=== PATIENT | female | born 1970 | race Asian ===

== ENCOUNTER 2024-04-16 08:23 | Inpatient (IN) | payer BC, SELFPAY ==
[2024-04-15] VITALS (13 sets, daily range): BP systolic 88–127; BP diastolic 52–70; BMI 15.8; BMI 16.4
--- NOTE | 2024-04-15 02:31 | ED.GENMED ---
History of Present Illness
<LADAN Patel - Last Filed: 04/15/24 03:02>
General
Chief Complaint: Catheter/Tube Problem
Source: patient
Exam Limitations: other (Patient in distress, difficult to get a full history)
Time Seen by Provider: 04/15/24 02:11
Travel History
Have you had any contact with someone who has COVID-19?: No
Do you have any symptoms of coronavirus? Fever > 100 degrees, chills, cough, shortness of breath, sore throat, loss of taste or smell, muscle aches, or headache?: No
History of Present Illness
History of Present Illness:
This is a 53 YO F with a PMH of ALS presenting here tonight with complaints of constant pain by her PEG tube site, which was placed two days ago (04/13/24). She was taken here by EMS. Pt reports the pain started on Saturday around 1:30 p.m. She took
Tylenol and Advil three hours ago without relief. She denies any radiation of pain. She rates the severity of her pain an 8/10. She reports SOB and nausea x 1 day. She denies chest pain and vomiting.
Past History
<LADAN Patel - Last Filed: 04/15/24 03:02>
Past History
ED Past Medical History: Other (Interstitial cystitis, ALS)
ED Past Surgical History: and Orthopedic
Social History
Tobacco: Non-smoker
Alcohol: None
Drug: None
Living: with family
Phy Exam
<LADAN Patel - Last Filed: 04/15/24 03:02>
General Physical Exam
General Presentation: moderate distress and severe distress
General age: appears stated age
General Skin: warm and dry
General Mental: alert
General Chronic Disability: other (PEG Tube placed two days ago)
Cardiovascular Exam
Cardiovascular Exam: regular rate/rhythm
Gastrointestinal Exam
Gastrointestinal Exam: normal bowel sounds and other (Tender, rigid abdomen)
Palpation: left upper quadrant: Moderate tenderness, left lower quadrant: Moderate tenderness and right lower quadrant: Moderate tenderness
Auscultation of Abdomen: normal
Course
<Lory Miranda, [facility] - Last Filed: 04/15/24 03:02>
Orders/Labs/Results
Orders:
Orders
04/15/24 02:25
IV Insert/Care/Rem.- Treatment PRN
04/15/24 02:27
Complete Blood Count/With Diff Urgent
Comprehensive Metabolic Panel Urgent
Lipase Urgent
04/15/24 02:57
CT Abd/pelvis W Iv Cont Urgent
Comment:
Reason For Exam: n/v abd pain s/p jtube
04/15/24 03:09
Lactic Acid Q4H
Comment: CANCEL 2nd LACTIC ACID IF 1st LACTIC ACID IS LESS THAN 2
04/15/24 03:34
HYDROmorphone [Dilaudid] 0.5 mg .ROUTE .STK-MED ONE
04/15/24 03:38
HYDROmorphone [Dilaudid] 0.5 mg IV NOW STA
04/15/24 03:50
0.9% Sodium Chloride 1000 ml [Nss] 1,000 ml IV BOLUS
Metoclopramide [Reglan] 10 mg IV NOW STA
04/15/24 07:15
Lactic Acid Q4H
Comment: CANCEL 2nd LACTIC ACID IF 1st LACTIC ACID IS LESS THAN 2
Abnormal Lab Results
04/15/24
02:27
WBC 14.7 H 10^3/uL
(4.8-10.8)
RBC 3.96 L 10^6/uL
(4.20-5.40)
Hct 33.8 L %
(37.0-47.0)
Abs Immat Gran (auto) 0.1 H 10^3/uL
(0-0.05)
Absolute Neuts (auto) 13.5 H 10^3/uL
(1.4-6.5)
Absolute Lymphs (auto) 0.6 L 10^3/uL
(1.2-3.4)
Neutrophils % 92.3 H %
(42.2-75.2)
Lymphocytes % 4.4 L %
(20.5-51.1)
Potassium 3.2 L mmol/L
(3.5-5.1)
BUN 18 H mg/dl
(7-17)
Glucose 164 H mg/dl
(70-99)
04/15/24 02:27
04/15/24 02:27
Vital Signs
Initial and Last Documented VS:
Initial Vital Signs
Temp Pulse Resp BP Pulse Ox
98.2 F 82 18 127/67 95
04/15/24 02:12 04/15/24 02:12 04/15/24 02:12 04/15/24 02:12 04/15/24 02:12
Last Documented Vital Signs
Temp Pulse Resp BP Pulse Ox
98.2 F 82 18 92/61 94
04/15/24 02:12 04/15/24 02:12 04/15/24 02:12 04/15/24 04:00 04/15/24 04:00
<Cali Abebe, DO - Last Filed: 04/15/24 04:39>
Orders/Labs/Results
Orders:
Orders
04/15/24 02:25
IV Insert/Care/Rem.- Treatment PRN
04/15/24 02:27
Complete Blood Count/With Diff Urgent
Comprehensive Metabolic Panel Urgent
Lipase Urgent
04/15/24 02:57
CT Abd/pelvis W Iv Cont Urgent
Comment:
Reason For Exam: n/v abd pain s/p jtube
04/15/24 03:09
Lactic Acid Q4H
Comment: CANCEL 2nd LACTIC ACID IF 1st LACTIC ACID IS LESS THAN 2
04/15/24 03:34
HYDROmorphone [Dilaudid] 0.5 mg .ROUTE .STK-MED ONE
04/15/24 03:38
HYDROmorphone [Dilaudid] 0.5 mg IV NOW STA
04/15/24 03:50
0.9% Sodium Chloride 1000 ml [Nss] 1,000 ml IV BOLUS
Metoclopramide [Reglan] 10 mg IV NOW STA
04/15/24 07:15
Lactic Acid Q4H
Comment: CANCEL 2nd LACTIC ACID IF 1st LACTIC ACID IS LESS THAN 2
Abnormal Lab Results
04/15/24
02:27
WBC 14.7 H 10^3/uL
(4.8-10.8)
RBC 3.96 L 10^6/uL
(4.20-5.40)
Hct 33.8 L %
(37.0-47.0)
Abs Immat Gran (auto) 0.1 H 10^3/uL
(0-0.05)
Absolute Neuts (auto) 13.5 H 10^3/uL
(1.4-6.5)
Absolute Lymphs (auto) 0.6 L 10^3/uL
(1.2-3.4)
Neutrophils % 92.3 H %
(42.2-75.2)
Lymphocytes % 4.4 L %
(20.5-51.1)
Potassium 3.2 L mmol/L
(3.5-5.1)
BUN 18 H mg/dl
(7-17)
Glucose 164 H mg/dl
(70-99)
04/15/24 02:27
05/22/24 02:27
Vital Signs
Initial and Last Documented VS:
Initial Vital Signs
Temp Pulse Resp BP Pulse Ox
98.2 F 82 18 127/67 95
04/15/24 02:12 04/15/24 02:12 04/15/24 02:12 04/15/24 02:12 04/15/24 02:12
Last Documented Vital Signs
Temp Pulse Resp BP Pulse Ox
98.2 F 82 18 92/61 94
04/15/24 02:12 04/15/24 02:12 04/15/24 02:12 04/15/24 04:00 04/15/24 04:00
<LADAN Patel - Last Filed: 04/15/24 03:02>
MDM/Problems Addressed
Differential Diagnosis Includes:
Displacement of PEG Tube, SBO, LBO, Volvulus
MDM/Problems Addressed:
8/10 abdominal pain at site of PEG tube
Chronic conditions affecting care: Other (ALS)
<LADAN Patel - Last Filed: 04/15/24 03:02>
*Critical Care Note
Total Time (30-74mins, 75-104mins- exclusive of procedures): Not Applicable
ED Attending Note
<LADAN Patel - Last Filed: 04/15/24 03:02>
-
Portions of this chart may have been created with voice recognition software.� Occasional wrong word or��sound alike� substitutions may have occurred due to the inherent limitations of voice recognition software.
<Cali Abebe DO - Last Filed: 04/15/24 04:39>
ED Attending Note
Patient seen and examined by attending physician: Yes
I performed the substantive portion of visit, reviewed & personally made and approve the management plan that is documented in note by myself or RICHARD.: Yes
ED Attending Note:
This a pleasant 53-year-old female that presents with abdominal pain. She is 2 days status post PEG tube insertion. It was done at [facility]. She states that she developed pain shortly after the procedure. She reports that the pain is
contained in her abdomen. Denies chest pain, but does report some mild shortness of breath especially when the pain is at its worst. She did try Tylenol and Motrin without relief. Patient was seen in conjunction with the PA student. I have
reviewed and agree with the history and treatment plan presented. On my independent physical exam, patient is awake, alert, and oriented x3. She is in moderate acute distress. Heart is regular rate and rhythm. Lungs are clear to auscultation
bilaterally. Abdomen is firm. There is PEG tube in the abdomen. Dressings are clean and dry. She does have tenderness to palpation throughout the abdomen but especially around the PEG tube site. Good bowel sounds are heard. She moves all 4
extremities. Skin is warm and dry.
Discharge Plan
Departure
Patient Disposition: Admit
Date of Disposition: 04/15/24
Time of Disposition: 04:38
Admit to: Med/Surg
Presentation/result/management discussed w/ accepting MD/DO: Hospitalist
Discharge Problem:
als exacerbation, Weakness, Abdominal pain
Prescriptions:
No Action
prednisolone 5 MG tablet
4 mg PO DAILY
Patient Comments:
last dose tomorrow
cephalexin [Keflex] 500 MG capsule
500 mg PO Q6 Qty: 30 1RF
amoxicillin-pot clavulanate 1 TABLET tablet
1 tab PO BID Qty: 14 0RF
oxycodone 5 MG tablet
5 mg PO Q4HPRN PRN (Reason: pain) Qty: 20 0RF
amoxicillin-pot clavulanate 875-125 mg tablet
1 tab PO BID Qty: 14 0RF
Referrals:
PRIVATE,PHYSICIAN [Family Provider] -
Interventions
Interventions:
*Risk Screen - Suicide Last Done: 04/15/24 02:19
*General Assessment Last Done: 04/15/24 02:12
*Neglect/Abuse Screening Last Done: 04/15/24 02:12
ED- Fall Risk Assessment Last Done: 04/15/24 02:12
*ED COVID-19 Vaccine History Last Done: 04/15/24 02:12
WG-Mavqvm-Lkhhsvqtop Assessment Last Done: 04/15/24 02:41
Discharge Date and Time
Print Language: ALBANIAN
[2024-04-15 02:37] LABS: % Basophils 0.3 % (0-2); % Immature Granulocytes 0.3 % (0-0.5); % Lymphocytes 4.4 % (20.5-51.1); % Monocytes 2.7 % (1.7-9.3); % Neutrophils 92.3 % (42.2-75.2); Absolute Basophils 0.1 10^3/uL (0-0.2); Absolute Immature Granulocytes 0.1 10^3/uL (0-0.05); Absolute Lymphocytes 0.6 10^3/uL (1.2-3.4); Absolute Monocytes 0.4 10^3/uL (0.1-0.6); Absolute Neutrophils 13.5 10^3/uL (1.4-6.5); Hematocrit 33.8 % (37.0-47.0); Hemoglobin 12.2 g/dL (12.0-16.0); Mean Corp Hgb Conc. 36.1 g/dL (33.0-37.0); Mean Corpuscular Hgb 30.8 pg (27.0-31.0); Mean Corpuscular Volume 85.4 fL (81.0-99.0); Mean Platelet Volume 10.2 fL (7.4-10.4); Nucleated Red Blood Cells % 0 %; Platelet Count 263 10^3/uL (130-400); Red Blood Cell Count 3.96 10^6/uL (4.20-5.40); White Blood Cell Count 14.7 10^3/uL (4.8-10.8)
[2024-04-15 02:51] LABS: ALT (SGPT) < 10 U/L (0-35); AST (SGOT) 19 U/L (14-36); Albumin 4.1 g/dl (3.5-5.0); Alkaline Phosphatase 58 U/L (38-126); Blood Urea Nitrogen 18 mg/dl (7-17); Calcium 9.6 mg/dl (8.4-10.2); Carbon Dioxide 23 mmol/L (22-30); Chloride 104 mmol/L (98-107); Estimated Creatinine Clearance 72 ml/min; Glucose 164 mg/dl (70-99); Potassium 3.2 mmol/L (3.5-5.1); Sodium 141 mmol/L (135-145); Total Protein 7.2 g/dl (6.3-8.2); eGFR > 60.00
[2024-04-15 03:15] LABS: Lipase 53 U/L (23-300)
[2024-04-15] MEDS: DILAUDID 0.5 MG IV (03:38)
[2024-04-15 03:44] LABS: Lactic Acid 1.7 mmol/L (0.7-2.0)
[2024-04-15] MEDS: NSS 1000 IV ×3 (03:59→20:00)
[2024-04-15] MEDS: REGLAN 10 MG IV (04:00)
--- NOTE | 2024-04-15 04:39 | HPS.HSE ---
Family Physician
-
Family Physician: PHYSICIAN PRIVATE
Chief Complaint
-
Abdominal pain at the PEG site
History of Present Illness
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 PEG tube was placed by Dr. Sky Rivera, bariatric surgeon/GI surgeon at [facility].
She took Tylenol and Advil without relief. She is a poor historian likely due to current pain and underlying ALS.
Denies to any other symptoms.
At baseline, she uses a wheelchair for ambulation
Medical History
Past Medical History
Past Medical History: Reports Other
Additional Past Medical History:
ALS
chronic overactive bladder
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
Past Surgical History: Reports Other
Additional Past Surgical History:
Back surgery x 2
PICC placement 04/13/2024 at [facility]
Social History
Tobacco: Non-smoker
Alcohol: None
Living: With Family
Employment: Disabled
Family History
Family History: Not pertinent
Allergies / Home Medications
Allergies reflects when Allergies were last updated in [employer].
Home Medications with original date entered in [employer]
Allergy/Medication List:
Medications on admission are unable to be verified or confirmed at this time.
Review of Systems
-
Abdomen/GI: Reports See HPI and Abdominal Pain
Physical Exam
Vital Signs
Vital Signs
Temp Pulse Resp BP Pulse Ox
36.8 C 82 18 92/61 94
04/15/24 02:12 04/15/24 02:12 04/15/24 02:12 04/15/24 04:00 04/15/24 04:00
Physical Exam
General: Well Developed, Slurred Speech (Likely chronic due to underlying ALS), Appears Chronically Ill and Cachectic
HEENT: NormoCephalic and Moist mucous membranes
Respiratory: Clear and Non Labored Respirations; No Accessory Resp Muscle Use
Cardiac: S1/S2 and Regular Rhythm; No Murmur or Rub
GI: Non Distended, Normal Bowel Sounds, Tender and Peg Tube; No Organomegaly
Rectal: Deferred by Provider
Musculoskeletal: No Clubbing, No Cyanosis and No Edema
Skin: No Rash
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
Psych: Calm and Intact Judgment/Insight (Somewhat)
Laboratory Results
-
04/15/24 02:27
04/15/24 02:
Laboratory Results
Lactic Acid 1.7 mmol/L (0.7-2.0) 04/15/24 03:09
Total Bilirubin 1.0 mg/dl (0.2-1.3) 04/15/24 02:27
AST 19 U/L (14-36) 04/15/24 02:27
ALT < 10 U/L (0-35) 04/15/24 02:
Alkaline Phosphatase 58 U/L (38-126) 04/15/24 02:27
Lipase 53 U/L (23-300) 04/15/24 02:27
Data Reviewed
-
Lab Data: Labs Reviewed by me
Impression/Plan
-
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 PEG tube was placed by Dr. Sky Rivera, bariatric surgeon/GI surgeon at [facility].
She took Tylenol and Advil without relief. She is a poor historian likely due to current pain and underlying ALS.
Denies to any other symptoms.
At baseline, she uses a wheelchair for ambulation
A/P:
# Abdominal Pain since Recent PEG Placement 04/13/2024
# ALS
# Clinical deconditioning/severe protein caloric malnutrition, BMI 15
CT abdomen pelvis prelim read unrevealing, follow formal report
will also order tube check
PEG tube not in use yet
Admit for pain control, start IV morphine for pain control
N.p.o. for now with IV fluid
Speech eval prior to starting diet. Family states that patient is on regular diet at home
Consider Neuro CS for ALS
# Leukocytosis suspect reactive
Check blood culture
# Hypokalemia
Replete IV
Check mag level
DVT prophylaxis: Lovenox SQ
Full code
[2024-04-15] MEDS: KCL 270 MEQ IV (05:57)
[2024-04-15] MEDS: MORPHINE SULFATE 2 MG IV ×2 (08:19→16:45)
--- NOTE | 2024-04-15 09:06 | W.PN.HOSP.TC ---
Addendum entered and electronically signed by Hugo Santos MD 04/15/24 15:44:
Rather than repeat ABG it should read tomorrow might need to repeat images*
Original Note:
Today's Communication/Plan
-
IV fluids. IV antibiotics. Pain control.
Assessment / Plan
Assessment / Plan
Physical Exam
General: Slurred Speech (Likely chronic due to underlying ALS), Acute on chronically Ill and Cachectic
HEENT: NormoCephalic and Dry mucous membranes
Respiratory: Clear and Non Labored Respirations; No Accessory Resp Muscle Use
Cardiac: S1/S2 and Regular Rhythm; No Murmur or Rub
GI: Tender-diffusely, Distended, Hypoactive Bowel Sounds, Peg Tube in place; No Organomegaly
Rectal: Deferred by Provider
Musculoskeletal: No Clubbing, No Cyanosis and No Edema
Skin: No Rash
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
Psych: Anxious
A/P:
# Abdominal Pain since Recent PEG Placement 04/13/2024--> concerns for superior mesenteric artery syndrome versus enteritis versus constipation versus ischemic bowel syndrome vs Stercoral colitis
Keep NPO.
IV fluids.
Start empiric IV antibiotics, Zosyn.
Reviewed CT scan of the abdomen and pelvis results. Some concerning findings on images such as SMA, moderate pneumoperitoneum, distention of stomach and duodenum, distention of the bowels, but also alternative explanations so we will follow
clinically very closely.
Reviewed tube check study. Gastrostomy tube in position.
Surgery consult--> discussed with our surgeon here who will see the patient, Dr. Wilson.
GI consult--> [facility] texted GI today and they will see the patient today.
Called transfer center at [facility] and discussed with outpatient surgeon-->Dr. Sky Rivera . Outpatient surgery does not feel this is a complication from procedure done on Saturday and he does not think that she needs to be transferred
the moment but he is open for us to call back if clinical status worsens or not improvement.
PEG tube not in use yet. Keep PEG to gravity for now.
Aggressive bowel regimen
Might need repeat ABGs tomorrow or sooner if clinical status changes.
Lactate 1.7
Will discontinue all narcotics.
Will use rather IV acetaminophen and IV Toradol as needed. Narcotics only if no other choice since it will worsen constipation at this point and will obscure clinical picture.
Discussed with son at bedside today.
Prognosis guarded and worse if she were to require surgical intervention.
# ALS
Follows up with outpatient neurologist at [facility] [facility].
Continue neurological checks
# Clinical deconditioning/severe protein caloric malnutrition, BMI 15
She is able to tolerate oral intake but PEG was placed to help with nutrition and in anticipation of progression of her underlying neurological disorder.
Speech therapy evaluated the patient today and cleared her for diet but medically not ready for diet yet. Not ready to use PEG either. Will reevaluate.
# Leukocytosis, infectious process reactive
Check blood culture
Empiric antibiotics
# Hypokalemia
Replete IV
Check mag level in am
DVT prophylaxis: Lovenox SQ
Full code
Total Critical Care Time 45 minutes. I was immediately available to the patient and staff. I personally examined, reviewed labs, diagnostic images/reports, interpretations, treatment plans, discussed patient care with other providers and family
or caregivers (if patient is unable to make decisions), entered orders as appropriate and documented the medical record.
Anticipated Discharge: > 48 hours
Subjective/Interval History
-
Date of Service: April 15, 2024
Patient with diffuse abdominal pain moderate to severe intensity. She has not passed any gases or has any bowel movement. She has not bowel movement for several days since Saturday evening prior to her procedure.
Objective Data
-
Labs:
Laboratory Results
04/15/24
02:27
WBC 14.7 H
Hgb 12.2
Hct 33.8 L
Plt Count 263
Sodium 141
Potassium 3.2 L
Chloride 104
Carbon Dioxide 23
BUN 18 H
Creatinine 0.6
Glucose 164 H
Calcium 9.6
Total Bilirubin 1.0
AST 19
ALT < 10
Alkaline Phosphatase 58
Vital Signs:
Vital Signs
Temp Pulse Resp BP Pulse Ox
98.2 F 82 18 90/64 95
04/15/24 02:12 04/15/24 02:12 04/15/24 02:12 04/15/24 06:00 04/15/24 06:00
--- NOTE | 2024-04-15 11:31 | PTOTSP ---
SPEECH THERAPY SWALLOW EVALUATION:
Patient exhibits clinical signs of oropharyngeal dysphagia, likely chronic related to ALS. Recommend a Videofluoroscopic Swallowing Study to further assess swallow physiology given patient has not had one previously per pt and family report. Given
that patient is unable to tolerate 90 degree upright positioning at this time due to abdominal pain, recommending holding on VSE until patient able to tolerate. Patient endorses history of 'choking' with liquids. WBC currently elevated. Patient is
at high risk for aspiration and related complications given ALS and related weakness/deconditioning. Discussed recommendation for VSE with patient/family, who appeared resistant to recommendations, with family reporting they did not want patient to
have any 'extra' procedures at this time. Educated patient/family on rationale for VSE to assess for swallow safety with oral diet and prevent aspiration related complications. Family continue to appear resistant to recommendations at this time.
RN reported PEG tube in place has not been cleared for use yet. Given patient's stable respiratory status at this time (breathing comfortably on room air), and chronicity of dysphagia, patient appears safe to continue cautious oral diet prior to
VSE. Recommend IDDSI Level 6 Soft and Bite Size diet and thin liquids; Medications whole in puree. Strict aspiration precautions includin:1 assist; Upright as able to tolerate positioning; Small single sips; Small bites; Slow rate of intake. D/C
oral diet if pt exhibits any signs concerning for aspiration or a decline in respiratory status. Discussed with pt/family/RN/Dr. Santos. Dr. Santos reported patient will be NPO today for medical reasons. Recommend initiate oral diet when cleared by
. Speech Therapy to follow, assess diet tolerance and modify as appropriate, monitor CXR and labs, determine readiness for VSE, provide continued pt/caregiver education regarding aspiration risks and precautions and VSE rationale, and provide
continued diagnostic swallow therapy as appropriate.
RECOMMEND:
1) Videofluoroscopic Swallowing Study when patient able to tolerate and agreeable
2) initiate cautious diet of IDDSI Level 6 Soft and Bite Size diet and thin liquids when medically cleared
3) Medications whole in puree
4) Strict aspiration precautions includin:1 assist; Upright as able to tolerate positioning; Small single sips; Small bites; Slow rate of intake. D/C oral diet if pt exhibits any signs concerning for aspiration or a decline in respiratory status
5) Speech Therapy to follow
--- NOTE | 2024-04-15 11:48 | CON.GI ---
Addendum entered and electronically signed by Chika Ku MD 04/15/24 16:40:
I saw and examined the patient.
The FINISHER MAP AND CHART or PA's note was reviewed and I agree with the note.
Comment: 53-year-old female with history of ALS, interstitial cystitis presenting with complaints of diffuse abdominal pain status post PEG tube placement 04/13. Procedure done at [facility] for dysphagia, gastroscopy with PEG tube
placement, patient reports abdominal pain after the procedure, had significant amount of bile that was noted in G-tube was put to gravity, was sent home and visiting nurse was sent, not much drainage from G-tube , G-tube clamped after. In the
emergency room, she had CT scan of the abdomen pelvis that showed moderate free air in the abdomen likely related to the PEG tube placement, also noted was dilated stomach and proximal duodenum, moderate free fluid and stool in the colon. Patient
reports history of constipation, has a bowel movement every couple of days with some incomplete evacuation.Has not been taking any laxatives. No blood in the stool or black stool and no history of upper endoscopy or colonoscopy prior to this.
-And moderate constipation abdominal pain status post-PEG tube placement, CT scan showing pneumoperitoneum likely related to procedure, dilated stomach and small bowel
Likely multifactorial cause for abdominal pain including postprocedure/constipation
Reports some burning urination prior to this visit but not today
Agree with putting G-tube to gravity to see if there is significant drainage of bile
Noted plan for surgery for small bowel follow-through using G-tube
Limit/avoid narcotics given constipation and dilated small bowel
Okay for Toradol
MiraLAX through the G-tube to help with constipation
Monitor electrolytes and replete
Leukocytosis,Blood cultures pending
Urine without any significant white cells
Will follow
Original Note:
Consultation
-
Date/Time Consultation Requested: 04/15/24 1115
Date/Time Consultation Performed: 04/15/24 1145
Requesting Provider: Hugo Santos MD
Performing Provider: KEILY Crockett, Chika Ku MD
Reason for Consultation: pain at peg site
Medical History
Chief Complaint / HPI
Chief Complaint: abdominal pain
History of Present Illness:
Pt is a 53yo presents with ALS with peg tube placement 04/13 with increased diffuse abdominal pain. On admission CT completed with large amount of free air related to peg placement, tube in position, dilated stomach and proximal duodenum with change
in caliber at midline suggest SMA syndrome, moderate free, distented and fluid filled SB loops c/w enteritis, moderate stool in colon. Tube check confirms GT in position. Moderate pneumoperitoneum severe air distention of duodenum, SB distention
and mild to moderate colonic distention.
In reviewing with patient and family hx constipation with stools every other day last stool several days ago. she admits to some nausea and vomiting small amount but did have tube to gravity bag initially at home and clamped by home nursing.
She otherwise admits to slow eating but denies any issue with diarrhea or rectal bleeding.
Past Medical History
Past Medical History: Other (ALS, chronic overactive bladder , recent peg placement, back pain, picc placement )
Social History
Tobacco: Former Smoker (years ago )
Alcohol: None
Drug: Marijuana (at nighttime)
Living: With Family
Employment: Disabled
Family History
Family History: Other (no family hx GI issues)
Allergies / Home Medications
Allergy/AdvReac Type Severity Reaction Status Date / Time
cat dander Allergy Itching Verified 04/15/24 02:12
�Medication �Instructions �Recorded
Atropine 1% 2 - 4 drp PO Q6HPRN PRN sercetions 04/15/24
alprazolam 0.25 mg tablet (Xanax) 0.25 mg PO BIDPRN PRN anxiety 04/15/24
carisoprodol 250 mg tablet (Soma) 250 mg PO BIDPRN PRN moderate pains 04/15/24
celecoxib 100 mg capsule 100 mg PO BID Pain 04/15/24
lactose-reduced food with fiber 1 ea PO QID Supplement 04/15/24
oral liquid
metaxalone 400 mg tablet 400 mg PO TID Muscle Spasms 04/15/24
norethindrone (contraceptive) 0.35 0.35 mg PO DAILY Hormonal Agent 04/15/24
mg tablet
sertraline 100 mg tablet 100 mg PO DAILY Mental Health 04/15/24
Review of Systems
-
History Source: Patient and Family
Constitutional: Reports Weight Loss and Fatigue
EENT: Reports No Symptoms
Respiratory: Reports No Symptoms
Abdomen/GI: Reports Abdominal Pain, Nausea and Constipated
: Reports No Symptoms
Musculoskeletal: Reports Other (weakness with ALS)
Neurological: Reports Weakness
Endocrine: Reports No Symptoms
Hematologic/Lymphatic: Reports No Symptoms
Vital Signs
Temp Pulse Resp BP Pulse Ox
98.2 F 82 18 96/63 97
04/15/24 02:12 04/15/24 02:12 04/15/24 02:12 04/15/24 08:00 04/15/24 10:30
Physical Exam
Exam
General: Well Developed, Well Nourished and No Apparent Distress
HEENT: Normocephalic and Anicteric
Respiratory: Clear
Cardiac: Regular Rhythm
GI: Soft, Tender (diffuse worse right lower abdomen away from peg, peg at 2-3 bumper pulled back to 4 without buried bumper, redness,swelling or local tenderness) and Distended
Genito-urinary: No Costovertebral Tender
Musculoskeletal: No Clubbing and No Cyanosis
Skin: Warm and Dry
Neuro: Awake, Alert and Other (slow speech but able to hold conversation)
Psych: Calm
Results
WBC 14.7 10^3/uL (4.8-10.8) H 04/15/24 02:27
Hgb 12.2 g/dL (12.0-16.0) 04/15/24 02:27
Hct 33.8 % (37.0-47.0) L 04/15/24 02:
MCV 85.4 fL (81.0-99.0) 04/15/24:
Plt Count 263 10^3/uL (130-400) 04/15/24 02:
Absolute Neuts (auto) 13.5 10^3/uL (1.4-6.5) H 04/15/24:
Sodium 141 mmol/L (135-145) 04/15/24:
Potassium 3.2 mmol/L (3.5-5.1) L 04/15/24:
Chloride 104 mmol/L (98-107) 04/15/24:
Carbon Dioxide 23 mmol/L (22-30) 04/15/24:
BUN 18 mg/dl (7-17) H 04/15/24:
Creatinine 0.6 mg/dL (0.6-1.0) 04/15/24:
Calcium 9.6 mg/dl (8.4-10.2) 04/15/24:
Total Bilirubin 1.0 mg/dl (0.2-1.3) 04/15/24:
AST 19 U/L (14-36) 04/15/24:
ALT < 10 U/L (0-35) 04/15/24:
Alkaline Phosphatase 58 U/L (38-126) 04/15/24:
Lipase 53 U/L (23-300) 04/15/24:
Diagnostic Image Results:
04/15/24 CT Abd/pelvis W Iv Cont
1. There is a moderately large amount of free air, likely related to the recent percutaneous gastrostomy tube placement. The tube appears in appropriate position. No skin thickening or fluid collection at the insertion site.
2. Dilated stomach and proximal duodenum, with change in caliber at the midline, findings suggest SMA syndrome.
3. Moderate free fluid.
4. Mildly distended and fluid-filled mildly enhancing small bowel loops in the pelvis most consistent with enteritis.
5. Moderate stool in the colon.
04/15/24 tube check
1. Confirmation of gastrostomy tube position in the stomach.
2. MODERATE PNEUMOPERITONEUM.
3. Severe air distention of the duodenum, mild small bowel distention, and mild to moderate colonic distention.
Prior GI Procedures:
EGD: with recent peg
Colonoscopy: none
Assessment / Plan
-
Pt is a 53yo presents with ALS with peg tube placement 04/13 with increased diffuse abdominal pain. On admission CT completed with large amount of free air related to peg placement, tube in position, dilated stomach and proximal duodenum with change
in caliber at midline suggest SMA syndrome, moderate free, distended and fluid filled SB loops c/w enteritis, moderate stool in colon. Tube check confirms GT in position. Moderate pneumoperitoneum severe air distention of duodenum, SB distention
and mild to moderate colonic distention.
-diffuse abdominal pain
-s/p peg placement 04/13
-increase stool burden
-dilated stomach and proximal duodenum with suggest SMA syndrome/enteritis on CT
-mild leukocytosis
-hypokalemia
PLAN:
Etiology of abdominal pain with concern for constipation (right sided stool burden) related vs other etiology such entertitis, SMA vs other
will place tube to gravity for decompression with some drainage decompressed in ER
confirmed with surgery at [place] GT was placed via endoscopy
will start slow miralax via tube to allow stool to pass
repeat abd film in AM if any worsening distention will need to hold bowel regiment
trend WBC's
keep electrolytes corrected
consider Toradol and limit narcotic use
updated family at bedside
reviewed with [facility] at [place] [phone] tube placed with weight loss, was to continue pleasure foods and slowly start Isosource 1.5 via [employer] with goal 4 cartons per day-- tube feeds already set up at [place]
-
-
Thank you for consultation and allowing me to participate in the patient's care. Please call the application security developer GI physician during the after hours with any questions or concerns.
[2024-04-15] MEDS: ZOSYN 50 IV ×3 (12:05→23:44)
[2024-04-15] MEDS: TORADOL 15 MG IV ×2 (14:33→20:30)
[2024-04-15 15:10] LABS: Urine Albumin 1+ (Neg - Trace); Urine Bilirubin 1+ (Negative); Urine Character Clear (Clear); Urine Color Yellow; Urine Glucose Negative (Negative); Urine Ketone 2+ (Negative); Urine Leukocyte Trace (Negative); Urine Nitrite Negative (Negative); Urine Occult Blood Trace (Negative); Urine Urobilinogen Negative (Neg - 1+); Urine pH 6.5 (5.0-9.0)
[2024-04-15 15:27] LABS: Urine Red Blood Cell 0-2 /HPF (0-2); Urine White Cell 0-2 /HPF (0-5)
--- NOTE | 2024-04-15 15:28 | CON.GS ---
Consultation
-
Requesting Provider: Danielle
Performing Provider: Katie
Reason for Consultation: Abd pain
Medical History
-
Chief Complaint: Abd pain
History of Present Illness:
53F PPD2 s/p peg tube placement at [facility] with increased diffuse abdominal pain beginning post procedure and persisting until now without relenting. She tells me they placed the PEG in anticipation of a future date when she develops dysphagia 2/2 her
ALS, though currently she is eating and denies difficulty swallowing. She endorses constipation with stools every other day last stool several days ago. She endorses nausea and vomiting small amount but did have tube clamped by home nursing at that
time. Denies f/c. Unclear if passing flatus.
Past Medical History
Past Medical History: Other (ALS, chronic overactive bladder, chronic back pain)
Past Surgical History: Other (PEG)
Social History
Tobacco: Former Smoker
Alcohol: None
Drug: Marijuana
Living: With Family
Employment: Disabled
Family History
Family History: Reviewed & Noncontributory
Allergies / Home Medications
Allergy/AdvReac Type Severity Reaction Status Date / Time
cat dander Allergy Itching Verified 04/15/24 02:12
�Medication �Instructions �Recorded �Confirmed �Type
Atropine 1% 2 - 4 drp PO Q6HPRN PRN sercetions 04/15/24 04/15/24 History
alprazolam 0.25 mg tablet (Xanax) 0.25 mg PO BIDPRN PRN anxiety 04/15/24 04/15/24 History
carisoprodol 250 mg tablet (Soma) 250 mg PO BIDPRN PRN moderate pains 04/15/24 04/15/24 History
celecoxib 100 mg capsule 100 mg PO BID Pain 04/15/24 04/15/24 History
lactose-reduced food with fiber 1 ea PO QID Supplement 04/15/24 04/15/24 History
oral liquid
metaxalone 400 mg tablet 400 mg PO TID Muscle Spasms 04/15/24 04/15/24 History
norethindrone (contraceptive) 0.35 0.35 mg PO DAILY Hormonal Agent 04/15/24 04/15/24 History
mg tablet
sertraline 100 mg tablet 100 mg PO DAILY Mental Health 04/15/24 04/15/24 History
Review of Systems
-
A 10 point review of systems was completed, and was negative except as per HPI.
Physical Exam
Vital Signs
Temp Pulse Resp BP Pulse Ox
98.2 F 82 18 92/70 97
04/15/24 02:12 04/15/24 02:12 04/15/24 02:12 04/15/24 14:00 04/15/24 14:30
04/14/24 04/15/24 04/16/24
06:59 06:59 06:59
Actual Weight 41.3 kg
Body Mass Index (BMI) 15.8
Lab Results
04/15/24 02:27
04/15/24 02:27
WBC 14.7 10^3/uL (4.8-10.8) H 04/15/24 02:27
Hgb 12.2 g/dL (12.0-16.0) 04/15/24 02:27
Hct 33.8 % (37.0-47.0) L 04/15/24 02:27
Plt Count 263 10^3/uL (130-400) 04/15/24 02:27
Abs Immat Gran (auto) 0.1 10^3/uL (0-0.05) H 04/15/24 02:27
Neutrophils % 92.3 % (42.2-75.2) H 04/15/24 02:27
Physical Exam
General: No Apparent Distress
HEENT: Normocephalic and Anicteric
GI: Tender (moderate ttp diffusely with guarding, no tt light perc) and Distended
Skin: Warm and Dry
Neuro: AO x 3
Psych: Calm
Data Reviewed
-
CT Scan: Image Personally Visualized and interpreted, Report Reviewed by me, Discussed with Nurse, Discussed with Patient and Discussed with Family
Medical Tests (Nuc Med, Echo etc): Image Personally Visualized and interpreted, Report Reviewed by me, Discussed with Nurse, Discussed with Patient and Discussed with Family
Old Records: Requested
Assessment / Plan
-
53F with persistent abd pain since PEG 2 days ago, placed in anticipation of future dysphagia 2/2 ALS
AFVSS, BP is low normal, not unexpected considering BMI 15
WBC 14K, mild hypokalemia, labs otherwise unremarkable
Tube check with tube in proper position without leak
CT A/P without ab wall fluid collection nor intra-abdominal fluid collection, there is distention of stomach and proximal duodenum up to the midline with abrupt decompression beyond the midline, suggestive of possible GOO 2/2 SMA impingement; mildly
disntended sb loops with hyperenhancement - possible enteritis; extensive free intra-abdominal air (large free air is not expected post-PEG, cannot exclude the possibility of a perforated hollow viscus however this is unlikely since clinically she
does not appear toxic). If this is atmospheric air entrained into the abdomen from the scope this could explain her pain and unfortunately this gas will not readily resorb and will likely linger for many days and beyond. Unfortunately records from
the procedure are not currently available though they were requested.
Plan:
No indication for emergent surgical intervention at this time
G-tube to gravity
PRN pain meds
IVF
IV abx empirically for the enteritis
Tentatively for UGI/SBFT via tube tomorrow
DVT ppx
[2024-04-15] MEDS: MIRALAX TUBE (17:34)
[2024-04-15] MEDS: LOVENOX SC ×2 (17:34→17:43)
[2024-04-15] MEDS: MIRALAX 17 GRAMS TUBE (21:40)
[2024-04-15 22:03] LABS: Glucose - Point of Care 112 mg/dl (70-99)
[2024-04-16] MEDS: TORADOL 15 MG IV ×3 (04:08→18:31)
--- NOTE | 2024-04-16 04:24 | PTCARENOTE ---
Patient's abdomen less distended, green drainage noted. Medicated with prn toradol, turned and repositioned
[2024-04-16] MEDS: NSS 1000 IV ×2 (05:13→19:38)
[2024-04-16] MEDS: ZOSYN 50 IV ×4 (05:13→23:54)
[2024-04-16 07:40] VITALS: BP 157/81
[2024-04-16 08:09] LABS: Hematocrit 29.9 % (37.0-47.0); Hemoglobin 10.1 g/dL (12.0-16.0); Mean Corp Hgb Conc. 33.8 g/dL (33.0-37.0); Mean Corpuscular Hgb 30.1 pg (27.0-31.0); Mean Platelet Volume 11.2 fL (7.4-10.4); Nucleated Red Blood Cells % 0 %; Platelet Count 224 10^3/uL (130-400); Red Blood Cell Count 3.36 10^6/uL (4.20-5.40); Red Cell Dist. Width 13.4 % (11.5-14.5); White Blood Cell Count 9.4 10^3/uL (4.8-10.8)
[2024-04-16] MEDS: OFIRMEV 65 MG IV ×2 (08:10→14:50)
[2024-04-16] MEDS: MIRALAX 17 GRAMS TUBE (08:11)
[2024-04-16 08:20] LABS: Blood Urea Nitrogen 18 mg/dl (7-17); Calcium 8.4 mg/dl (8.4-10.2); Carbon Dioxide 18 mmol/L (22-30); Chloride 113 mmol/L (98-107); Estimated Creatinine Clearance 76 ml/min; Glucose 91 mg/dl (70-99); Potassium 3.4 mmol/L (3.5-5.1); Sodium 142 mmol/L (135-145); eGFR > 60.00
--- NOTE | 2024-04-16 08:51 | W.PN.HOSP.TC ---
Today's Communication/Plan
-
IV fluids. IV antibiotics. X-ray of the abdomen
Assessment / Plan
Assessment / Plan
Physical Exam
General: Slurred Speech (Likely chronic due to underlying ALS), Acute on chronically Ill and Cachectic
HEENT: NormoCephalic and Dry mucous membranes
Respiratory: Clear and Non Labored Respirations; No Accessory Resp Muscle Use
Cardiac: S1/S2 and Regular Rhythm; No Murmur or Rub
GI: Tender-diffusely, Distended, Hypoactive Bowel Sounds, Peg Tube in place; No Organomegaly
Rectal: Deferred by Provider
Musculoskeletal: No Clubbing, No Cyanosis and No Edema
Skin: No Rash
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
Psych: Anxious
A/P:
# Abdominal Pain since Recent PEG Placement 04/13/2024--> concerns for superior mesenteric artery syndrome versus enteritis versus constipation versus ischemic bowel syndrome vs Stercoral colitis
Keep NPO.
IV fluids.
Start empiric IV antibiotics, Zosyn.
PEG to gravity.
Discussed with surgeon today on 04/16/2024.
Please No p.o. meds or meds through PEG yet.
Continue IV acetaminophen and IV Toradol as needed.
Blood cultures no growth.
WBC 14.7--> 9.4
Hemoglobin 12.2--> 10.1
Discussed with attending RN at bedside
Prior to today:
Reviewed CT scan of the abdomen and pelvis results. Some concerning findings on images such as SMA, moderate pneumoperitoneum, distention of stomach and duodenum, distention of the bowels, but also alternative explanations so we will follow
clinically very closely.
Reviewed tube check study. Gastrostomy tube in position.
Surgery consult--> discussed with our surgeon here who will see the patient, Dr. Wilson.
GI consult--> [facility] texted GI today and they will see the patient today.
Called transfer center at [place] and discussed with outpatient surgeon-->Dr. Sky Rivera . Outpatient surgery does not feel this is a complication from procedure done on Saturday and he does not think that she needs to be transferred
the moment but he is open for us to call back if clinical status worsens or not improvement.
PEG tube not in use yet. Keep PEG to gravity for now.
Aggressive bowel regimen
Might need repeat ABGs tomorrow or sooner if clinical status changes.
Lactate 1.7
Will discontinue all narcotics.
Will use rather IV acetaminophen and IV Toradol as needed. Narcotics only if no other choice since it will worsen constipation at this point and will obscure clinical picture.
Discussed with son at bedside today.
Prognosis guarded and worse if she were to require surgical intervention.
# ALS
Follows up with outpatient neurologist at [place].
Continue neurological checks
# Clinical deconditioning/severe protein caloric malnutrition, BMI 15
She is able to tolerate oral intake but PEG was placed to help with nutrition and in anticipation of progression of her underlying neurological disorder.
Speech therapy evaluated the patient today and cleared her for diet but medically not ready for diet yet. Not ready to use PEG either. Will reevaluate.
# Leukocytosis, infectious process reactive
Check blood culture
Empiric antibiotics
# Hypokalemia
Replete IV
Check mag level in am
DVT prophylaxis: Lovenox SQ
Full code
Total time spent on today's encounter was 52 minutes which included time spent in counseling the patient/family regarding diagnosis and treatment plan as listed above, goals of care, and symptom management. Case was discussed with nursing staff,
specialists, and care coordinators/case management. All labs and imaging personally reviewed by me. Remainder the time spent in detailed review of previous records, lab data, imaging, and other medical provider documentation.
Anticipated Discharge: > 48 hours
Subjective/Interval History
-
Date of Service: April 16, 2024
Patient still has abdominal pain and abdominal distention. No bowel movement. Afebrile today. No chest pain or shortness of breath.
Objective Data
-
Labs:
Laboratory Results
04/16/24
07:20
WBC 9.4
Hgb 10.1 L
Hct 29.9 L
Plt Count 224
Sodium 142
Potassium 3.4 L
Chloride 113 H
Carbon Dioxide 18 L
BUN 18 H
Creatinine 0.4 L
Glucose 91
Calcium 8.4
Vital Signs:
Vital Signs
Temp Pulse Resp BP Pulse Ox
97.9 F 102 18 157/81 100
04/16/24 07:40 04/16/24 07:40 04/16/24 07:40 04/16/24 07:40 04/16/24 07:40
I&O
04/15/24 04/16/24 04/17/24
06:59 06:59 06:59
Intake Total 1320 / 1320
Output Total 350 / 350
Balance 970 / 970
[2024-04-16 09:10] LABS: Absolute Neutrophils -Man Diff 8.4 10^3/uL (1.4-6.5); Anisocytosis Slight; Band Neutrophils 12 % (0-3); Hypochromasia 1+; Lymphocytes 8 % (20-51); Monocytes 2 % (2-9); Normal RBC Morphology No; Platelets Checked Yes; Segmented Neutrophils 78 % (42-75); Total Cells Counted 100
--- NOTE | 2024-04-16 09:34 | W.PN.GS2 ---
Addendum entered and electronically signed by Jaun Dupree MD 04/16/24 10:44:
Abdominal x-ray images reviewed. Contrast administer for PEG tube check yesterday now throughout the colon. Ruling out distal obstruction or high-grade/complete gastric outlet obstruction as well.
As below will continue with G-tube to gravity today with bowel rest and holding on bowel regimen
Probable repeat CT imaging tomorrow for surveillance of pneumoperitoneum to confirm stability or hopefully significant improvement.
Will follow.
Original Note:
Today's Communication / Plan
-
`
Assessment / Plan
-
53-year-old female with localized peritonitis, diffuse abdominal pain and free air status post PEG at outside hospital 3 days ago
No intra-abdominal fluid collections or significant free fluid
Significant distention of the stomach
Contrast tube check in the emergency department without extravasation
AF, heart rate 102 vital signs otherwise stable
Abdominal examination with localized peritonitis around tube site but not generalized and no percussion tenderness
Plan: G-tube should be to gravity at all times for now until symptoms resolve
Would not administer any bowel regiment until there is some natural return of at least passage of flatus/some GI recovery
Stopped MiraLAX and Senokot
Follow-up abdominal x-ray
No clear evidence that there is ongoing leakage or disruption of PEG with resultant gastric or other visceral perforation. Continue attempts at nonoperative management assuming clinical stability and improvement. If regular atmospheric gas
utilized for insufflation rather than CO2 for endoscopic procedure it may take a prolonged time for resorption and elimination of pneumoperitoneum.
Subjective Data
-
Date of Service: April 16, 2024
Patient seen and examined
She reported that her symptoms were improving with her G-tube to gravity but worse now after having her G tube clamped and starting on MiraLAX
No flatus or bowel movements
Objective Data
-
Intake and Output
04/15/24 04/16/24 04/17/24
06:59 06:59 06:59
Intake Total 1320 / 1320
Output Total 350 / 350
Balance 970 / 970
Intake:
Oral fluids 20
IV fluids (Total) 1200 / 1200
IV piggybacks 100 / 100
Output:
Gastrointestinal tube output ( 250 / 250
Total)
Gastrostomy 250 / 250
Urine, Voided 100 / 100
Other:
Number of approximated MODERATE 1
amounts of urine
Vital Signs
Temp Pulse Resp BP Pulse Ox
97.9 F 102 18 157/81 100
04/16/24 07:40 04/16/24 07:40 04/16/24 07:40 04/16/24 07:40 04/16/24 07:40
Lab Results
04/16/24 07:20
04/16/24 07:20
Calcium 8.4 mg/dl (8.4-10.2) 04/16/24 07:20
Magnesium 2.0 mg/dl (1.6-2.3) 04/16/24 07:20
Total Bilirubin 1.0 mg/dl (0.2-1.3) 04/15/24 02:27
AST 19 U/L (14-36) 04/15/24 02:27
ALT < 10 U/L (0-35) 04/15/24 02:27
Alkaline Phosphatase 58 U/L (38-126) 04/15/24 02:27
Total Protein 7.2 g/dl (6.3-8.2) 04/15/24 02:27
Albumin 4.1 g/dl (3.5-5.0) 04/15/24 02:27
Physical Exam
-
NAD AAOx3
ABD: Tympanitic throughout, distended, no percussion tenderness. Diffuse tenderness on palpation with localized guarding and rebound around her PEG tube site. Bumper 3 cm at the skin. No drainage around it.
[2024-04-16] MEDS: KCL 160 MEQ IV (10:48)
[2024-04-16 14:28] VITALS: BP 131/70
[2024-04-16 14:35] VITALS: BMI 16.4
--- NOTE | 2024-04-16 14:37 | W.PN.GI.CBS2 ---
Addendum entered and electronically signed by Chika Ku MD 04/16/24 18:34:
I saw and examined the patient.
The REHABILITATION THERAPY TECHNICIAN or PA's note was reviewed and I agree with the note.
Comment: No events overnight. No fevers or chills
Patient reports abdominal pain is slightly better, passing some flatus, no bowel movements yet
Abdominal exam still shows distended abdomen with tenderness, no guarding or rigidity
Abdominal x-ray from this morning shows bowel contrast from tube check seen throughout the large bowel, grossly nonobstructive pattern.
G-tube still to gravity, and bilious material in the Gann bag but not significant amounts.
Patient did receive MiraLAX but given abdomen is still distended, hold off on clear liquids or MiraLAX at this time.
Dulcolax suppository to stimulate bowel movement.
Continue to monitor electrolytes and replete as needed and continue to limit narcotics.
Plan for CT scan of the abdomen tomorrow prior to initiation of diet.
Will follow.
Original Note:
Today's Communication / Plan
-
Etiology of abdominal pain with concern for constipation (right sided stool burden) related vs other etiology such entertitis, SMA , ALS, post procedure vs other
slight less distention than yesterday and slow improvement in pain
contrast has passed to colon from tube check and report flatus
reviewed with surgical and medical team will give 1 dose miralax tonight and dulcolax suppository but try to keep tube vented
will allow some sips clear with supplement
WBC's improved
follow clinical exam
if worsening consider CT
keep electrolytes corrected cont to correct K
limiting narcotics
updated family at bedside
reviewed 04/15 with [facility] at [place] [phone] tube placed with weight loss, was to continue pleasure foods and slowly start Isosource 1.5 via [employer] with goal 4 cartons per day-- tube feeds already set up at [facility]
updated social work
plan per family was initial tube feed 30ml day 1 then 60 ml day 2 and advance as tolerated
Assessment / Plan
-
Pt is a 53yo presents with ALS with peg tube placement 04/13 at [place] with increased diffuse abdominal pain. On admission CT completed with large amount of free air related to peg placement, tube in position, dilated stomach and proximal duodenum with
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 Tube check confirms GT in position. Moderate pneumoperitoneum severe air distention of duodenum, SB
distention and mild to moderate colonic distention.
-diffuse abdominal pain
-s/p peg placement 04/13
-increase stool burden
-dilated stomach and proximal duodenum with suggest SMA syndrome/enteritis on CT
-mild leukocytosis
-hypokalemia
PLAN:
Etiology of abdominal pain with concern for constipation (right sided stool burden) related vs other etiology such entertitis, SMA , ALS, post procedure vs other
slight less distention than yesterday and slow improvement in pain
contrast has passed to colon from tube check and report flatus
reviewed with surgical and medical team will give 1 dose miralax tonight and dulcolax suppository but try to keep tube vented
will allow some sips clear with supplement
WBC's improved
follow clinical exam
if worsening consider CT
keep electrolytes corrected cont to correct K
limiting narcotics
updated family at bedside
reviewed 04/15 with [facility] at [place] [phone] tube placed with weight loss, was to continue pleasure foods and slowly start Isosource 1.5 via [employer] with goal 4 cartons per day-- tube feeds already set up at [facility]
updated social work
plan per family was initial tube feed 30ml day 1 then 60 ml day 2 and advance as tolerated
Subjective
Subjective
Date of Service: April 16, 2024
NPO, 250ml output from GT, still with distention but passing some gas no stools slow improvement of pain
Objective
Data Reviewed
Laboratory Data:
Laboratory Results
04/16/24 07:20
04/16/24 07:20
Laboratory Results
Magnesium 2.0 mg/dl (1.6-2.3) 04/16/24 07:20
Total Bilirubin 1.0 mg/dl (0.2-1.3) 04/15/24 02:27
AST 19 U/L (14-36) 04/15/24 02:27
ALT < 10 U/L (0-35) 04/15/24 02:27
Alkaline Phosphatase 58 U/L (38-126) 04/15/24 02:27
Lipase 53 U/L (23-300) 04/15/24 02:27
Vital Signs and I&O:
Vital Signs
Temp Pulse Resp BP Pulse Ox
97.1 F 94 20 131/70 97
04/16/24 14:28 04/16/24 14:28 04/16/24 14:28 04/16/24 14:28 04/16/24 14:28
I&O
04/15/24 04/16/24 04/17/24
06:59 06:59 06:59
Intake Total 1320 / 1320
Output Total 350 / 350
Balance 970 / 970
Physical Exam
Physical Exam
HEENT: Anicteric
Cardiology: Normal Sinus Rhythm
Pulmonary: Clear
GI: Soft, Distended, Tender (mild diffuse ) and Other (peg intact )
Extremities: No Edema
Neuro: Other (diffuse weakness )
--- NOTE | 2024-04-16 14:58 | CM ---
Patient seen bedside with son, initial assessment completed. Patient resides with two children in multiple story home, ramp to enter. Patient has a first floor set up, per son, patient does not ever have to go upstairs. Patient has a wheel chair,
walker, basilia lift. Patient is current with [facility], also has private care M-F for four hours a day. Patient confirms PCP Dr. Adams, pharmacy [facility]. Per GI note, patient was previously set up with tube feeding through [facility],
[phone], slowly start Isosoruce 1.5 via [employer]. CM will continue to follow for discharge planning needs.
Plan; home with [facility] when medically stable, confirm tube feeds previously delivered/set up.
[2024-04-16 15:26] VITALS: BP 136/83
[2024-04-16] MEDS: DULCOLAX 10 MG RECTAL (16:08)
--- NOTE | 2024-04-16 16:34 | PTCARENOTE ---
Nursing staff and patients son assisted patient removing contacts. Contacts are to be changed daily. Patient has no glasses.
[2024-04-16] MEDS: LOVENOX 40 MG SC (17:09)
[2024-04-16 23:41] VITALS: BP 136/73
[2024-04-17] MEDS: TORADOL 15 MG IV ×4 (00:33→22:20)
[2024-04-17] MEDS: ZOSYN 50 IV ×3 (05:33→17:41)
[2024-04-17] MEDS: NSS 1000 IV (06:28)
[2024-04-17 07:29] LABS: % Basophils 0.3 % (0-2); % Eosinophils 2.8 % (0-6); % Immature Granulocytes 0.5 % (0-0.5); % Lymphocytes 8.2 % (20.5-51.1); % Monocytes 4.1 % (1.7-9.3); % Neutrophils 84.1 % (42.2-75.2); Absolute Eosinophils 0.3 10^3/uL (0-0.7); Absolute Immature Granulocytes 0.1 10^3/uL (0-0.05); Absolute Lymphocytes 0.8 10^3/uL (1.2-3.4); Absolute Monocytes 0.4 10^3/uL (0.1-0.6); Absolute Neutrophils 7.9 10^3/uL (1.4-6.5); Hematocrit 28.8 % (37.0-47.0); Hemoglobin 9.6 g/dL (12.0-16.0); Mean Corp Hgb Conc. 33.3 g/dL (33.0-37.0); Mean Platelet Volume 10.5 fL (7.4-10.4); Nucleated Red Blood Cells % 0 %; Platelet Count 252 10^3/uL (130-400); Red Cell Dist. Width 13.2 % (11.5-14.5); White Blood Cell Count 9.4 10^3/uL (4.8-10.8)
[2024-04-17 07:59] LABS: Blood Urea Nitrogen 11 mg/dl (7-17); Calcium 8.6 mg/dl (8.4-10.2); Carbon Dioxide 16 mmol/L (22-30); Chloride 113 mmol/L (98-107); Estimated Creatinine Clearance 76 ml/min; Glucose 92 mg/dl (70-99); Phosphorus 2.1 mg/dl (2.5-4.5); Sodium 142 mmol/L (135-145); eGFR > 60.00
[2024-04-17] MEDS: ZOFRAN 4 MG IV (08:12)
[2024-04-17 08:30] LABS: Glucose - Point of Care 72 mg/dl (70-99)
[2024-04-17 08:45] VITALS: BP 140/83
[2024-04-17] MEDS: D5/0.45%NSS with KCL 20 MEQ 1000 IV ×2 (09:28→21:34)
[2024-04-17] MEDS: KCL 270 MEQ IV (09:29)
--- NOTE | 2024-04-17 09:46 | W.PN.GS2 ---
Today's Communication / Plan
-
Repeat CT
Assessment / Plan
-
53-year-old female with ALS presenting with localized peritonitis, diffuse abdominal pain and free air status post PEG at outside hospital [facility]
No intra-abdominal fluid collections or significant free fluid
Significant distention of the stomach
Contrast tube check in the emergency department without extravasation
AFVSS
Abdominal examination with localized peritonitis around tube site but not generalized and no percussion tenderness
Plan: G-tube should be to gravity at all times for now until symptoms resolve
Hold on diet.Would not administer any PO bowel regimen as of yet
Follow-up CT planned today
No clear evidence that there is ongoing leakage or disruption of PEG with resultant gastric or other visceral perforation. Continue attempts at nonoperative management assuming clinical stability and improvement. If regular atmospheric gas
utilized for insufflation rather than CO2 for endoscopic procedure it may take a prolonged time for resorption and elimination of pneumoperitoneum.
Subjective Data
-
Date of Service: April 17, 2024
Patient seen and examined at bedside with Dr. Onofre. Reports significant abdominal pain with any PO intake. Passing some flatus and small stool.
Objective Data
-
Intake and Output
04/16/24 04/17/24 04/18/24
06:59 06:59 06:59
Intake Total 1320 / 1320 1670 / 1670
Output Total 350 / 350 450 / 450
Balance 970 / 970 1220 / 1220
Intake:
Oral fluids 20 / 20 360 / 360
IV fluids (Total) 1200 / 1200 1000 / 1000
IV piggybacks 100 / 100 100 / 100
Amount instilled into GI Tube ( 210 / 210
Total)
Gastrostomy 210 / 210
Output:
Gastrointestinal tube output ( 250 / 250 450 / 450
Total)
Gastrostomy 250 / 250 450 / 450
Urine, Voided 100 / 100
Other:
Number of approximated MODERATE 1 2
amounts of urine
Vital Signs
Temp Pulse Resp BP Pulse Ox
98.5 F 90 18 140/83 95
04/17/24 08:45 04/17/24 08:45 04/17/24 08:45 04/17/24 08:45 04/17/24 08:45
Lab Results
04/17/24 07:16
04/17/24 07:16
Calcium 8.6 mg/dl (8.4-10.2) 04/17/24 07:16
Phosphorus 2.1 mg/dl (2.5-4.5) L 04/17/24 07:16
Magnesium 2.0 mg/dl (1.6-2.3) 04/17/24 07:16
Total Bilirubin 1.0 mg/dl (0.2-1.3) 04/15/24 02:27
AST 19 U/L (14-36) 04/15/24 02:27
ALT < 10 U/L (0-35) 04/15/24 02:27
Alkaline Phosphatase 58 U/L (38-126) 04/15/24 02:27
Total Protein 7.2 g/dl (6.3-8.2) 04/15/24 02:27
Albumin 4.1 g/dl (3.5-5.0) 04/15/24 02:27
Physical Exam
-
NAD AAOx3
ABD: Tympanitic throughout, distended, no percussion tenderness. Diffuse tenderness on palpation with localized guarding and rebound around her PEG tube site. Bumper 3 cm at the skin. No drainage around it.
[2024-04-17] MEDS: OFIRMEV 65 MG IV (10:04)
[2024-04-17 10:24] VITALS: BP 154/86; PULSE 92; O2SAT 94
--- NOTE | 2024-04-17 10:38 | VNURNOTE ---
Patient is current with [facility] only since 04/14 w/SN, following discharge from [place]. Will monitor progress and plan at discharge.
--- NOTE | 2024-04-17 11:43 | W.PN.HOSP.TC ---
Today's Communication/Plan
-
IV fluids. Pain control. IV antibiotics. CT of the abdomen today.
Assessment / Plan
Assessment / Plan
Physical Exam
General: Acute on chronically Ill and Cachectic
HEENT: NormoCephalic and Dry mucous membranes
Respiratory: Clear and Non Labored Respirations; No Accessory Resp Muscle Use
Cardiac: S1/S2 and Regular Rhythm; No Murmur or Rub
GI: Tender-diffusely, Distended, Hypoactive Bowel Sounds, Peg Tube in place; No Organomegaly
Rectal: Deferred by Provider
Musculoskeletal: No Clubbing, No Cyanosis and No Edema
Skin: No Rash
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
Psych: Anxious
A/P:
# Abdominal Pain since Recent PEG Placement 04/13/2024--> concerns for superior mesenteric artery syndrome versus enteritis versus constipation versus ischemic bowel syndrome vs Stercoral colitis
Keep NPO.
IV fluids.
Continue empiric IV antibiotics, Zosyn.
PEG to gravity.
Discussed with surgeon yesterday
Please No p.o. meds or meds through PEG yet.
Continue IV acetaminophen and IV Toradol as needed.
Blood cultures no growth.
WBC 14.7--> 9.4
Hemoglobin 12.2--> 10.1-->9.6
Discussed with attending RN at bedside
Plan for CT of the abdomen today
Discussed with son at bedside today on 04/17
Prior to today:
Reviewed CT scan of the abdomen and pelvis results. Some concerning findings on images such as SMA, moderate pneumoperitoneum, distention of stomach and duodenum, distention of the bowels, but also alternative explanations so we will follow
clinically very closely.
Reviewed tube check study. Gastrostomy tube in position.
Surgery consult--> discussed with our surgeon here who will see the patient, Dr. Wilson.
GI consult--> [facility] texted GI today and they will see the patient today.
Called transfer center at [place] and discussed with outpatient surgeon-->Dr. Sky Rivera . Outpatient surgery does not feel this is a complication from procedure done on Saturday and he does not think that she needs to be transferred
the moment but he is open for us to call back if clinical status worsens or not improvement.
PEG tube not in use yet. Keep PEG to gravity for now.
Aggressive bowel regimen
Might need repeat CT tomorrow or sooner if clinical status changes.
Lactate 1.7
Will discontinue all narcotics.
Will use rather IV acetaminophen and IV Toradol as needed. Narcotics only if no other choice since it will worsen constipation at this point and will obscure clinical picture.
Discussed with son at bedside today.
Prognosis guarded and worse if she were to require surgical intervention.
# ALS
Follows up with outpatient neurologist at [place].
Continue neurological checks
# Clinical deconditioning/severe protein caloric malnutrition, BMI 15
She is able to tolerate oral intake but PEG was placed to help with nutrition and in anticipation of progression of her underlying neurological disorder.
Speech therapy evaluated the patient today and cleared her for diet but medically not ready for diet yet. Not ready to use PEG either. Will reevaluate.
# Leukocytosis, infectious process reactive
Check blood culture
Empiric antibiotics
# Hypokalemia
Replete IV
Check mag level in am
DVT prophylaxis: Lovenox SQ
Full code
Total time spent on today's encounter was 52 minutes which included time spent in counseling the patient/family regarding diagnosis and treatment plan as listed above, goals of care, and symptom management. Case was discussed with nursing staff,
specialists, and care coordinators/case management. All labs and imaging personally reviewed by me. Remainder the time spent in detailed review of previous records, lab data, imaging, and other medical provider documentation.
Anticipated Discharge: > 48 hours
Subjective/Interval History
-
Date of Service: April 17, 2024
Patient still having abdominal pain and distention. She was able to sit up in the chair today though. Afebrile. She is passing flatus. She had a small bowel movement yesterday.
Objective Data
-
Labs:
Laboratory Results
04/17/24
07:16
WBC 9.4
Hgb 9.6 L
Hct 28.8 L
Plt Count 252
Sodium 142
Potassium 3.0 L
Chloride 113 H
Carbon Dioxide 16 L
BUN 11
Creatinine 0.4 L
Glucose 92
Calcium 8.6
Vital Signs:
Vital Signs
Temp Pulse Resp BP Pulse Ox
98.5 F 90 18 140/83 95
04/17/24 08:45 04/17/24 08:45 04/17/24 08:45 04/17/24 08:45 04/17/24 08:45
I&O
04/16/24 04/17/24 04/18/24
06:59 06:59 06:59
Intake Total 1320 / 1320 1670 / 1670
Output Total 350 / 350 450 / 450
Balance 970 / 970 1220 / 1220
--- NOTE | 2024-04-17 11:48 | CM ---
Patient off floor, patients son in room. Chart reviewed, patient remains on IV fluids, IV antibiotics. CM will continue to follow for discharge planning needs.
Plan; home with [facility] when stable, confirm tube feeds.
--- NOTE | 2024-04-17 11:55 | W.PN.GI.CBS2 ---
Addendum entered and electronically signed by Chantal Diallo Do, MD 04/17/24 16:36:
I saw and examined the patient.
The DIALYSIS CHIEF EQUIPMENT TECHNICIAN's note was reviewed and I agree with the note.
Comment: She continues to have drainage from PEG tube. Abd distension somewhat improved. She is thirsty. Denies nausea/vomiting. Exam chronically ill appearing woman with slurred speech, abd distended, no guarding, PEG tube with yellow output
into Gann bag. Labs reviewed without WBC elevation
Recommendation
- Empiric trial of reglan ATC as prokinetic. Risk of QTC prolongation and tardive dyskinesia discussed and accepted by pt
- EKG
- CT AP results reviewed, adv to [facility]
- Consider clamping trial of PEG tomorrow
- Consider miralax daily tomorrow
- PPI IV BID
Will follow with you
Original Note:
Today's Communication / Plan
-
Etiology of abdominal pain with concern for constipation (right sided stool burden) related vs other etiology such entertitis, SMA , ALS, post procedure vs other
distention with slow improvement
drainage 450ml overnight and 3 stool since yesterday
await CT just completed then consider resuming clear
follow clinical exam
keep electrolytes corrected cont to correct K-- for further replacement today
limiting narcotics
reviewed 04/15 with [facility] at [place] [phone] tube placed with weight loss, was to continue pleasure foods and slowly start Isosource 1.5 via [employer] with goal 4 cartons per day-- tube feeds already set up at [facility]
updated social work
plan per family was initial tube feed 30ml day 1 then 60 ml day 2 and advance as tolerated
Assessment / Plan
-
Pt is a 53yo presents with ALS with peg tube placement 04/13 at [place] with increased diffuse abdominal pain. On admission CT completed with large amount of free air related to peg placement, tube in position, dilated stomach and proximal duodenum with
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 Tube check confirms GT in position. Moderate pneumoperitoneum severe air distention of duodenum, SB
distention and mild to moderate colonic distention.
-diffuse abdominal pain
-s/p peg placement 04/13
-increase stool burden
-dilated stomach and proximal duodenum with suggest SMA syndrome/enteritis on CT
-mild leukocytosis
-hypokalemia
PLAN:
Etiology of abdominal pain with concern for constipation (right sided stool burden) related vs other etiology such entertitis, SMA , ALS, post procedure vs other
distention with slow improvement
drainage 450ml overnight and 3 stool since yesterday
await CT just completed then consider resuming clear
follow clinical exam
keep electrolytes corrected cont to correct K-- for further replacement today
limiting narcotics
reviewed 04/15 with [facility] at [place] [phone] tube placed with weight loss, was to continue pleasure foods and slowly start Isosource 1.5 via [employer] with goal 4 cartons per day-- tube feeds already set up at [facility]
updated social work
plan per family was initial tube feed 30ml day 1 then 60 ml day 2 and advance as tolerated
Subjective
Subjective
Date of Service: April 17, 2024
Pt with 2 stools yesterday and 1 today still with tenderness, just returned from CT
Objective
Data Reviewed
Laboratory Data:
Laboratory Results
04/17/24 07:16
04/17/24 07:16
Laboratory Results
Phosphorus 2.1 mg/dl (2.5-4.5) L 04/17/24 07:16
Magnesium 2.0 mg/dl (1.6-2.3) 04/17/24 07:16
Total Bilirubin 1.0 mg/dl (0.2-1.3) 04/15/24 02:27
AST 19 U/L (14-36) 04/15/24 02:27
ALT < 10 U/L (0-35) 04/15/24 02:27
Alkaline Phosphatase 58 U/L (38-126) 04/15/24 02:27
Lipase 53 U/L (23-300) 04/15/24 02:27
Vital Signs and I&O:
Vital Signs
Temp Pulse Resp BP Pulse Ox
98.5 F 90 18 140/83 95
04/17/24 08:45 04/17/24 08:45 04/17/24 08:45 04/17/24 08:45 04/17/24 08:45
I&O
04/16/24 04/17/24 04/18/24
06:59 06:59 06:59
Intake Total 1320 / 1320 1670 / 1670
Output Total 350 / 350 450 / 450
Balance 970 / 970 1220 / 1220
Physical Exam
Physical Exam
HEENT: Anicteric and Moist mucous membranes
Cardiology: Normal Sinus Rhythm
Pulmonary: Clear
GI: Soft, Distended (less distention and some limitation as sitting in chair) and Tender (diffuse )
Extremities: No Edema
Neuro: Other (weakness with ALS)
[2024-04-17 15:49] VITALS: BP 149/77
[2024-04-17] MEDS: LOVENOX 40 MG SC (17:40)
[2024-04-17] MEDS: REGLAN 10 MG IV (17:41)
[2024-04-17] MEDS: TYLENOL ORAL SOLUTION 650 MG PO (21:34)
[2024-04-17 23:55] VITALS: BP 125/67
[2024-04-18] MEDS: REGLAN 10 MG IV ×5 (00:05→23:11)
[2024-04-18] MEDS: ZOSYN 50 IV ×5 (00:05→23:11)
[2024-04-18] MEDS: TORADOL 15 MG IV ×4 (05:23→23:26)
[2024-04-18 06:57] LABS: % Basophils 0.1 % (0-2); % Eosinophils 4.7 % (0-6); % Immature Granulocytes 0.5 % (0-0.5); % Lymphocytes 11.9 % (20.5-51.1); % Monocytes 6.5 % (1.7-9.3); % Neutrophils 76.3 % (42.2-75.2); Absolute Eosinophils 0.4 10^3/uL (0-0.7); Absolute Lymphocytes 0.9 10^3/uL (1.2-3.4); Absolute Monocytes 0.5 10^3/uL (0.1-0.6); Absolute Neutrophils 5.6 10^3/uL (1.4-6.5); Hematocrit 29.3 % (37.0-47.0); Hemoglobin 10.2 g/dL (12.0-16.0); Mean Corp Hgb Conc. 34.8 g/dL (33.0-37.0); Mean Corpuscular Hgb 30.3 pg (27.0-31.0); Mean Corpuscular Volume 86.9 fL (81.0-99.0); Nucleated Red Blood Cells % 0 %; Platelet Count 259 10^3/uL (130-400); Red Blood Cell Count 3.37 10^6/uL (4.20-5.40); Red Cell Dist. Width 12.5 % (11.5-14.5); White Blood Cell Count 7.4 10^3/uL (4.8-10.8)
[2024-04-18 07:08] VITALS: BP 137/75
[2024-04-18 07:49] LABS: Blood Urea Nitrogen 2 mg/dl (7-17); Calcium 8.2 mg/dl (8.4-10.2); Carbon Dioxide 23 mmol/L (22-30); Chloride 105 mmol/L (98-107); Estimated Creatinine Clearance 76 ml/min; Glucose 125 mg/dl (70-99); Potassium 3.3 mmol/L (3.5-5.1); Sodium 135 mmol/L (135-145); eGFR > 60.00
--- NOTE | 2024-04-18 07:58 | W.PN.HOSP.TC ---
Today's Communication/Plan
-
Straight bladder catheter. Antibiotics. Repeat urine culture.
Assessment / Plan
Assessment / Plan
Physical Exam
General: Acute on chronically Ill and Cachectic
HEENT: NormoCephalic and Dry mucous membranes
Respiratory: Clear and Non Labored Respirations; No Accessory Resp Muscle Use
Cardiac: S1/S2 and Regular Rhythm; No Murmur or Rub
GI: Tender-diffusely, Distended, Hypoactive Bowel Sounds, Peg Tube in place; No Organomegaly
Rectal: Deferred by Provider
Musculoskeletal: No Clubbing, No Cyanosis and No Edema
Skin: No Rash
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
Psych: Anxious
A/P:
#Lower abdominal discomfort with urinary symptoms:
Likely related to urinary retention from neurogenic bladder, but rule out UTI
Straight cath as needed
If multiple cath, might need Gann catheter
Recheck urinalysis and urine culture if indicated
Continue IV Zosyn
Discussed with GI today and they are starting her on full liquid diet
Follow-up surgery recommendations
# Abdominal Pain since Recent PEG Placement 04/13/2024--> concerns for superior mesenteric artery syndrome versus enteritis versus constipation versus ischemic bowel syndrome vs Stercoral colitis:
Reviewed latest CT scan of the abdomen
Can stop IV fluids if tolerating diet
Continue empiric IV antibiotics, Zosyn.
PEG to gravity.
Surgery on board
PEG use when surgery clear
Continue IV acetaminophen and IV Toradol as needed.
Blood cultures no growth.
WBC 14.7--> 7.4
Hemoglobin 12.2--> 10.2
Discussed with attending RN at bedside
Discussed with son at bedside yesterday
# ALS
Follows up with outpatient neurologist at [place].
Continue neurological checks
# Clinical deconditioning/severe protein caloric malnutrition, BMI 15
She is able to tolerate oral intake but PEG was placed to help with nutrition and in anticipation of progression of her underlying neurological disorder.
Speech therapy evaluated the patient today and cleared her for diet but medically not ready for diet yet. Not ready to use PEG either. Will reevaluate.
# Leukocytosis, infectious process reactive
Check blood culture
Empiric antibiotics
# Hypokalemia
Replete IV and po
DVT prophylaxis: Lovenox SQ
Full code
Total time spent on today's encounter was 52 minutes which included time spent in counseling the patient/family regarding diagnosis and treatment plan as listed above, goals of care, and symptom management. Case was discussed with nursing staff,
specialists, and care coordinators/case management. All labs and imaging personally reviewed by me. Remainder the time spent in detailed review of previous records, lab data, imaging, and other medical provider documentation.
Anticipated Discharge: > 48 hours
Subjective/Interval History
-
Date of Service: April 18, 2024
Patient complains of a lot of lower abdominal discomfort and dysuria and urgency. Has not voided today. Afebrile
Objective Data
-
Labs:
Laboratory Results
04/18/24
06:02
WBC 7.4
Hgb 10.2 L
Hct 29.3 L
Plt Count 259
Sodium 135
Potassium 3.3 L
Chloride 105
Carbon Dioxide 23
BUN 2 L
Creatinine 0.3 L
Glucose 125 H
Calcium 8.2 L
Vital Signs:
Vital Signs
Temp Pulse Resp BP Pulse Ox
98.8 F 87 16 125/67 95
04/17/24 23:55 04/17/24 23:55 04/17/24 23:55 04/17/24 23:55 04/17/24 23:55
I&O
04/17/24 04/18/24 04/19/24
06:59 06:59 06:59
Intake Total 1670 / 1670 3255 / 3255
Output Total 450 / 450 340 / 340
Balance 1220 / 1220 2915 / 2915
[2024-04-18] MEDS: D5/0.45%NSS with KCL 20 MEQ 1000 IV (09:46)
--- NOTE | 2024-04-18 09:58 | W.PN.GI.CBS2 ---
Addendum entered and electronically signed by Chantal Diallo Do, MD 04/18/24 12:40:
I saw and examined the patient.
The GRILL CHEF's note was reviewed and I agree with the note.
Comment: She reported suprapubic pain. Bladder scan was high and straight cath for about 700mL of clear urine. Exam VSS Tmax 99.1F chronically ill appearing W, NAD, slurred words. Labs reviewed. CT reviewed
Impression
- Clamp NGT
- Start CLD and advanced as tolerates
- C/w reglan
- C/w miralax and monitor stool output
- C/w PPI IV BID
- Above d/w surgery
Will follow with you
Original Note:
Today's Communication / Plan
-
ntion with slow improvement
+ stools
now with increased pelvic pain today with burning
reviewed with Dr. Santos will bladder scan now work up for UTI per hospitalist service- no urine output recorded
on clear diet
diet advancement per surgery-- slow transition
will need eventual clamping trial when pelvic issue improved
follow clinical exam -- still distention but less than admission- pelvic discomfort worse than prior days
cont to correct K 3.3 today per hospitalist
limiting narcotics
reviewed 04/15 with [facility] at [place] [phone] tube placed with weight loss, was to continue pleasure foods and slowly start Isosource 1.5 via Riboxx with goal 4 cartons per day-- tube feeds already set up at [place]
plan per family was initial tube feed 30ml day 1 then 60 ml day 2 and advance as tolerated
Assessment / Plan
-
Pt is a 53yo presents with ALS with peg tube placement 04/13 at [place] with increased diffuse abdominal pain. On admission CT completed with large amount of free air related to peg placement, tube in position, dilated stomach and proximal duodenum with
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 Tube check confirms GT in position. Moderate pneumoperitoneum severe air distention of duodenum, SB
distention and mild to moderate colonic distention.
-diffuse abdominal pain
-lower pelvic pain
-s/p peg placement 04/13
-increase stool burden on initial CT
-dilated stomach and proximal duodenum with suggest SMA syndrome/enteritis on CT
-mild leukocytosis
-hypokalemia
PLAN:
Etiology of abdominal pain with concern for constipation (right sided stool burden) related with stool now passing vs other etiology such entertitis, SMA , ALS, post procedure vs other
distention with slow improvement
+ stools
now with increased pelvic pain today with burning
reviewed with Dr. Santos will bladder scan now work up for UTI per hospitalist service- no urine output recorded
on clear diet
diet advancement per surgery-- slow transition
will need eventual clamping trial when pelvic issue improved
follow clinical exam -- still distention but less than admission- pelvic discomfort worse than prior days
cont to correct K 3.3 today per hospitalist
limiting narcotics
reviewed 04/15 with [facility] at [place] [phone] tube placed with weight loss, was to continue pleasure foods and slowly start Isosource 1.5 via Riboxx with goal 4 cartons per day-- tube feeds already set up at [place]
plan per family was initial tube feed 30ml day 1 then 60 ml day 2 and advance as tolerated
Subjective
Subjective
Date of Service: April 18, 2024
04/17 brown loose stool on clear diet, 340ml output no urine output recorded
Objective
Data Reviewed
Laboratory Data:
Laboratory Results
04/18/24 06:02
04/18/24 06:02
Laboratory Results
Phosphorus 2.1 mg/dl (2.5-4.5) L 04/17/24 07:16
Magnesium 2.0 mg/dl (1.6-2.3) 04/17/24 07:16
Total Bilirubin 1.0 mg/dl (0.2-1.3) 04/15/24 02:27
AST 19 U/L (14-36) 04/15/24 02:27
ALT < 10 U/L (0-35) 04/15/24 02:27
Alkaline Phosphatase 58 U/L (38-126) 04/15/24 02:27
Lipase 53 U/L (23-300) 04/15/24 02:27
Vital Signs and I&O:
Vital Signs
Temp Pulse Resp BP Pulse Ox
99.1 F 86 18 137/75 98
04/18/24 07:08 04/18/24 07:08 04/18/24 07:08 04/18/24 07:08 04/18/24 07:08
I&O
04/17/24 04/18/24 04/19/24
06:59 06:59 06:59
Intake Total 1670 / 1670 3255 / 3255
Output Total 450 / 450 340 / 340
Balance 1220 / 1220 2915 / 2915
Physical Exam
Physical Exam
HEENT: Anicteric and Moist mucous membranes
Cardiology: Normal Sinus Rhythm
Pulmonary: Clear
GI: Soft, Distended and Tender (mild diffuse worse pelvis )
Extremities: No Edema
Neuro: Other (weakness with ALS)
[2024-04-18] MEDS: KCL 270 MEQ IV (10:51)
[2024-04-18] MEDS: OFIRMEV 65 MG IV (10:52)
[2024-04-18 11:19] LABS: Urine Albumin Negative (Neg - Trace); Urine Bilirubin Negative (Negative); Urine Character Clear (Clear); Urine Color Yellow; Urine Glucose Negative (Negative); Urine Ketone Negative (Negative); Urine Leukocyte Negative (Negative); Urine Nitrite Negative (Negative); Urine Occult Blood Trace (Negative); Urine Urobilinogen Negative (Neg - 1+)
[2024-04-18 11:27] LABS: Urine Mucus Few
[2024-04-18 11:29] LABS: Urine Bacteria Few (Negative)
--- NOTE | 2024-04-18 14:35 | W.PN.GS2 ---
Today's Communication / Plan
-
Diet/bowel regimen per GI
Assessment / Plan
-
53-year-old female with ALS presenting with localized peritonitis, diffuse abdominal pain and free air status post PEG at outside hospital [employer]
No intra-abdominal fluid collections or significant free fluid
Significant distention of the stomach
Contrast tube check in the emergency department without extravasation
Rpt CT scan with improved distention and improved free air
AFVSS
Plan:
No plan for surgery
Diet and bowel regimen per GI
Pls call with ?s
Subjective Data
-
Date of Service: April 18, 2024
Pain improving, denies n/v
Objective Data
-
Intake and Output
04/17/24 04/18/24 04/19/24
06:59 06:59 06:59
Intake Total 1670 / 1670 3255 / 3255
Output Total 450 / 450 340 / 340 700 / 700
Balance 1220 / 1220 2915 / 2915 -700 / -700
Intake:
Oral fluids 360 / 360 480 / 480
IV fluids (Total) 1000 / 1000 2135 / 2135
IV piggybacks 100 / 100 550 / 550
Amount instilled into GI Tube ( 210 / 210 90 / 90
Total)
Gastrostomy 210 / 210 90 / 90
Output:
Gastrointestinal tube output ( 450 / 450 340 / 340
Total)
Gastrostomy 450 / 450 340 / 340
Straight cath output 700 / 700
Other:
Number of approximated MODERATE 2 2
amounts of urine
Vital Signs
Temp Pulse Resp BP Pulse Ox
99.1 F 86 18 137/75 98
04/18/24 07:08 04/18/24 07:08 04/18/24 07:08 04/18/24 07:08 04/18/24 07:08
Lab Results
04/18/24 06:02
04/18/24 06:02
Calcium 8.2 mg/dl (8.4-10.2) L 04/18/24 06:02
Phosphorus 2.1 mg/dl (2.5-4.5) L 04/17/24 07:16
Magnesium 2.0 mg/dl (1.6-2.3) 04/17/24 07:16
Total Bilirubin 1.0 mg/dl (0.2-1.3) 04/15/24 02:27
AST 19 U/L (14-36) 04/15/24 02:27
ALT < 10 U/L (0-35) 04/15/24 02:27
Alkaline Phosphatase 58 U/L (38-126) 04/15/24 02:27
Total Protein 7.2 g/dl (6.3-8.2) 04/15/24 02:27
Albumin 4.1 g/dl (3.5-5.0) 04/15/24 02:27
Physical Exam
-
Gen: NAD
Abd: soft, mild ttp worst around the tube site
[2024-04-18 15:01] VITALS: BP 135/83
[2024-04-18] MEDS: LOVENOX 40 MG SC (17:07)
[2024-04-18] MEDS: OFIRMEV 100 IV (21:32)
[2024-04-18 23:55] VITALS: BP 149/80
[2024-04-19] MEDS: ZOSYN 50 IV (05:12)
[2024-04-19] MEDS: TORADOL 15 MG IV ×3 (05:13→23:38)
[2024-04-19] MEDS: REGLAN 10 MG IV ×4 (05:13→23:47)
[2024-04-19 07:31] VITALS: BP 142/94
[2024-04-19 08:21] LABS: % Basophils 0.5 % (0-2); % Eosinophils 4.2 % (0-6); % Immature Granulocytes 0.4 % (0-0.5); % Lymphocytes 12.4 % (20.5-51.1); % Monocytes 8.7 % (1.7-9.3); % Neutrophils 73.8 % (42.2-75.2); Absolute Eosinophils 0.3 10^3/uL (0-0.7); Absolute Monocytes 0.7 10^3/uL (0.1-0.6); Absolute Neutrophils 5.7 10^3/uL (1.4-6.5); Hematocrit 32.1 % (37.0-47.0); Hemoglobin 11.4 g/dL (12.0-16.0); Mean Corp Hgb Conc. 35.5 g/dL (33.0-37.0); Mean Corpuscular Hgb 29.9 pg (27.0-31.0); Mean Corpuscular Volume 84.3 fL (81.0-99.0); Mean Platelet Volume 10.2 fL (7.4-10.4); Nucleated Red Blood Cells % 0 %; Platelet Count 339 10^3/uL (130-400); Red Blood Cell Count 3.81 10^6/uL (4.20-5.40); Red Cell Dist. Width 12.7 % (11.5-14.5); White Blood Cell Count 7.7 10^3/uL (4.8-10.8)
[2024-04-19 08:55] LABS: Blood Urea Nitrogen 4 mg/dl (7-17); Calcium 9.1 mg/dl (8.4-10.2); Carbon Dioxide 25 mmol/L (22-30); Chloride 101 mmol/L (98-107); Estimated Creatinine Clearance 76 ml/min; Glucose 96 mg/dl (70-99); Magnesium 1.9 mg/dl (1.6-2.3); Potassium 3.6 mmol/L (3.5-5.1); Sodium 137 mmol/L (135-145); eGFR > 60.00
--- NOTE | 2024-04-19 09:05 | W.PN.GI.CBS2 ---
Today's Communication / Plan
-
Adv to IDDS6 diet
Keep PEG tube clamped
C/w miralax and reglan. Consider motegrity OP basis
C/w PPI
Will follow with you
Assessment / Plan
-
Freda is a 53yo presents with ALS with peg tube placement 04/13 at [place] with increased diffuse abdominal pain. On admission CT completed with large amount of free air related to peg placement, tube in position, dilated stomach and proximal duodenum
with change in caliber at midline suggest SMA syndrome, moderate free, distended and fluid filled SB loops c/w enteritis, moderate stool in colon. Tube check confirms GT in position. Moderate pneumoperitoneum severe air distention of duodenum, SB
distention and mild to moderate colonic distention.
Impression
-diffuse abdominal pain
post PEG placement at [facility] 04/13
-lower pelvic pain
-urinary retention
-increase stool burden on initial CT
-dilated stomach and proximal duodenum with suggest SMA syndrome/enteritis on CT
-mild leukocytosis
-hypokalemia
Plan:
- Tolerated PEG tube clamping
- Repeated CT with less distension
- Adv to dysphagia 6 diet
- C/w miralax
- C/w reglan as prokinetic
- If tolerates consider starting low TF via pump tomorrow.
[facility] [employer] reviewed 04/15 with [facility] at [place] [phone] tube placed with weight loss, was to continue pleasure foods and slowly start Isosource 1.5 via [employer] with goal 4 cartons per day-- tube feeds already set up at
[facility]
plan per family was initial tube feed 30ml day 1 then 60 ml day 2 and advance as tolerated
Will follow with you
Subjective
Subjective
Date of Service: April 19, 2024
She tolerated clamping of PEG tube and no issues with FLD. She did end up needing huston placement overnight for continued bladder retention
Objective
Data Reviewed
Laboratory Data:
Laboratory Results
04/19/24 07:33
04/19/24 07:33
Laboratory Results
Phosphorus 2.1 mg/dl (2.5-4.5) L 04/17/24 07:16
Magnesium 1.9 mg/dl (1.6-2.3) 04/19/24 07:33
Total Bilirubin 1.0 mg/dl (0.2-1.3) 04/15/24 02:27
AST 19 U/L (14-36) 04/15/24 02:27
ALT < 10 U/L (0-35) 04/15/24 02:27
Alkaline Phosphatase 58 U/L (38-126) 04/15/24 02:27
Lipase 53 U/L (23-300) 04/15/24 02:27
Vital Signs and I&O:
Vital Signs
Temp Pulse Resp BP Pulse Ox
98.6 F 91 16 142/94 96
04/19/24 07:31 04/19/24 07:31 04/19/24 07:31 04/19/24 07:31 04/19/24 07:31
I&O
04/18/24 04/19/24 04/20/24
06:59 06:59 06:59
Intake Total 3255 / 3255 30 / 30
Output Total 340 / 340 2525 / 2525
Balance 2915 / 2915 -2495 / -2495
Physical Exam
Physical Exam
GEN: No acute distress, conversant with slurred speech
HEENT: anicteric, extraocular movements intact, clear oropharynx without exudates
GI: soft, mildly-distended, not tender to palpation, hypoactive active bowel sounds, PEG in LUQ without drainage or blood, no hepatosplenomegaly
EXT: warm, well perfused, trace edema bilaterally
NEURO: AAOx2, non-focal, diffuse muscle atrophy
--- NOTE | 2024-04-19 09:26 | W.PN.HOSP.TC ---
Today's Communication/Plan
-
Advance diet. Pain control. Bowel regimen. Antibiotics.
Assessment / Plan
Assessment / Plan
Physical Exam
General: Acute on chronically Ill and Cachectic
HEENT: NormoCephalic and Dry mucous membranes
Respiratory: Clear and Non Labored Respirations; No Accessory Resp Muscle Use
Cardiac: S1/S2 and Regular Rhythm; No Murmur or Rub
GI: Tender-diffusely, Distended, Hypoactive Bowel Sounds, Peg Tube in place; No Organomegaly
Rectal: Deferred by Provider
Musculoskeletal: No Clubbing, No Cyanosis and No Edema
Skin: No Rash
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
Psych: Anxious
A/P:
#Lower abdominal discomfort with urinary symptoms, likely interstitial cystitis:
Likely related to urinary retention from neurogenic bladder ALS related and decreased mobility and constipation, and interstitial cystitis, but rule out UTI
Needed straight catheter couple times yesterday so placed a Gann catheter. Hopefully removal Gann prior to discharge.
Repeat urinalysis and culture pending
Continue IV antibiotics but changed to IV Rocephin. Low threshold to stop if no positive cultures.
# Abdominal Pain since Recent PEG Placement 04/13/2024--> concerns for superior mesenteric artery syndrome versus enteritis versus constipation versus ischemic bowel syndrome vs Stercoral colitis:
Reviewed latest CT scan of the abdomen
Off IV fluids
Advance diet today to IDDSI 6 level diet
PEG tube is being clamped
Might start TF via pump tomorrow
Continue Reglan as prokinetic
Continue bowel regimen with MiraLAX
Appreciate GI follow-up
Surgery does not recommend surgical intervention at the moment.
Discussed with son prior
Few days ago I personally called transfer center at [facility] and discussed with outpatient surgeon-->Dr. Sky Rivera . Outpatient surgery does not feel this is a complication from procedure and he does not think that she needs to
be transferred the moment but he is open for us to call back if clinical status worsens or not improvement. Currently showing signs of improvement.
Today on 04/19 I discussed with family at bedside including son and mother and also several friends some of which are in the healthcare industry including pharmacist and dentist. We went over all details that transpired during this hospital stay and
plan of care.
# ALS
Follows up with outpatient neurologist at [place].
Continue neurological checks
# Clinical deconditioning/severe protein caloric malnutrition, BMI 15
She is able to tolerate oral intake but PEG was placed to help with nutrition and in anticipation of progression of her underlying neurological disorder.
# Leukocytosis, infectious process reactive
blood culture no growth
Empiric antibiotics
# Hypokalemia
Replete and trend
DVT prophylaxis: Lovenox SQ
Full code
Total time spent on today's encounter was 52 minutes which included time spent in counseling the patient/family regarding diagnosis and treatment plan as listed above, goals of care, and symptom management. Case was discussed with nursing staff,
specialists, and care coordinators/case management. All labs and imaging personally reviewed by me. Remainder the time spent in detailed review of previous records, lab data, imaging, and other medical provider documentation.
Anticipated Discharge: 24 - 48 hours
Subjective/Interval History
-
Date of Service: April 19, 2024
Patient with less abdominal pain and less distention today. Able to tolerate oral intake. No nausea or vomiting. Afebrile
Objective Data
-
Labs:
Laboratory Results
04/19/24
07:33
WBC 7.7
Hgb 11.4 L
Hct 32.1 L
Plt Count 339 D
Sodium 137
Potassium 3.6
Chloride 101
Carbon Dioxide 25
BUN 4 L
Creatinine 0.4 L
Glucose 96
Calcium 9.1
Vital Signs:
Vital Signs
Temp Pulse Resp BP Pulse Ox
98.6 F 91 16 142/94 96
04/19/24 07:31 04/19/24 07:31 04/19/24 07:31 04/19/24 07:31 04/19/24 07:31
I&O
04/18/24 04/19/24 04/20/24
06:59 06:59 06:59
Intake Total 3255 / 3255 30 / 30
Output Total 340 / 340 2525 / 2525
Balance 2915 / 2915 -2495 / -2495
--- NOTE | 2024-04-19 10:10 | CM ---
Patient seen at bedside. Patient hard to understand, nodded when asked if she was OK. CM will continue to follow for discharge planning needs.
Plan; home with VN and watch for IV antibiotic needs/tube feeds?
[2024-04-19] MEDS: STERILE WATER FOR INJECTION 10 ML IV (11:06)
[2024-04-19] MEDS: ROCEPHIN 1000 MG IV (11:06)
[2024-04-19 16:19] VITALS: BP 165/100
[2024-04-19] MEDS: LOVENOX SC ×2 (17:11→17:16)
[2024-04-19 23:41] VITALS: BP 166/87
[2024-04-20 03:39] VITALS: BP 143/74
[2024-04-20] MEDS: REGLAN 10 MG IV ×2 (05:40→11:40)
[2024-04-20 07:32] LABS: % Basophils 0.2 % (0-2); % Eosinophils 5.3 % (0-6); % Immature Granulocytes 0.8 % (0-0.5); % Lymphocytes 16.6 % (20.5-51.1); % Monocytes 11.2 % (1.7-9.3); % Neutrophils 65.9 % (42.2-75.2); Absolute Eosinophils 0.4 10^3/uL (0-0.7); Absolute Immature Granulocytes 0.1 10^3/uL (0-0.05); Absolute Lymphocytes 1.1 10^3/uL (1.2-3.4); Absolute Monocytes 0.7 10^3/uL (0.1-0.6); Absolute Neutrophils 4.4 10^3/uL (1.4-6.5); Hematocrit 30.9 % (37.0-47.0); Hemoglobin 10.6 g/dL (12.0-16.0); Mean Corp Hgb Conc. 34.3 g/dL (33.0-37.0); Mean Corpuscular Hgb 29.9 pg (27.0-31.0); Mean Platelet Volume 10.1 fL (7.4-10.4); Nucleated Red Blood Cells % 0 %; Platelet Count 323 10^3/uL (130-400); Red Blood Cell Count 3.55 10^6/uL (4.20-5.40); Red Cell Dist. Width 12.6 % (11.5-14.5); White Blood Cell Count 6.6 10^3/uL (4.8-10.8)
--- NOTE | 2024-04-20 08:45 | W.PN.HOSP.TC ---
Today's Communication/Plan
-
see A/P
Assessment / Plan
Assessment / Plan
A/P:
# Lower Abdominal discomfort with urinary symptom, due to Acute urinary retention
Needed straight catheter couple times, Gann placed.
With clinical improvement, will remove Gann 04/20 for TOV, cont bladder scan and retention protocol
Repeat urinalysis x2 no evidence of UTI
Pt received Zosyn x 4 days, then Rocephin x1 day, stop further antibiotic
# Abdominal Pain since Recent PEG Placement 04/13/2024
# concern for superior mesenteric artery syndrome versus enteritis versus constipation versus ischemic bowel syndrome vs Stercoral colitis:
repeat CT AP 04/17: There is a gastrostomy tube in the stomach, unchanged from prior study. The stomach and duodenum are less distended. There is free fluid surrounding the spleen which was not seen previously although there was free fluid in the
pelvis previously which persists on repeat study. There is intraperitoneal free air, noted previously
Advanced diet to IDDSI 6 level diet
PEG tube being clamped, start when cleared by GI
Reglan started as prokinetic
Continue bowel regimen with MiraLAX and Dulcolax
GI on board
Surgery does not recommend surgical intervention at the moment.
transfer was discussed with Dr. Sky Rivera outpatient surgery, no indication for immediate transfer at this moment
# ALS
Follows up with outpatient neurologist at [place].
Continue neurological checks
# Clinical deconditioning/severe protein caloric malnutrition, BMI 15
She is able to tolerate oral intake but PEG was placed to help with nutrition and in anticipation of progression of her underlying neurological disorder.
Cont soft and bite size diet
# Leukocytosis, reactive
blood culture no growth
Repeat urinalysis x2 no evidence of UTI
Pt received Zosyn x 4 days, then Rocephin x1 day, stop further antibiotic
# Hypokalemia
Replete and trend
DVT prophylaxis: Lovenox SQ
Full code
DW RN
called family to update, call not answered
Anticipated Discharge: > 48 hours
Subjective/Interval History
-
Date of Service: April 20, 2024
Objective Data
-
Labs:
Laboratory Results
04/20/24
06:54
WBC 6.6
Hgb 10.6 L
Hct 30.9 L
Plt Count 323
Sodium Pending
Potassium Pending
Chloride Pending
Carbon Dioxide Pending
BUN Pending
Creatinine Pending
Glucose Pending
Calcium Pending
Vital Signs:
Vital Signs
Temp Pulse Resp BP Pulse Ox
36.8 C 84 16 143/74 96
04/20/24 03:39 04/20/24 03:39 04/20/24 03:39 04/20/24 03:39 04/20/24 03:39
I&O
04/19/24 04/20/24 04/21/24
06:59 06:59 06:59
Intake Total
Output Total 2525 / 2525 1750 / 1750
Balance -2495 / -2495 -1750 / -1750
Review of Systems
-
All other systems: Reviewed and negative
Physical Exam
-
General: Well Developed, No Apparent Distress, Comfortable, Conversant, Appears Chronically Ill and Cachectic; Negative Respiratory Distress
HEENT: Normocephalic, Atraumatic, Nose Appears Normal and Ears Appear Normal; Negative Oxygen
Respiratory: Clear to Auscultation and Non Labored Respirations; Negative Accessory Resp Muscle Use
Cardiac: Regular Rhythm and S1/S2
GI: Soft, Nontender, Nondistended, Normal Bowel Sounds and Peg Tube
Skin: Warm and Dry
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
Psych: Calm and Intact Judgement/Insight (somewhat)
Data Reviewed
-
Labs: Labs Reviewed by me
[2024-04-20 08:54] LABS: Blood Urea Nitrogen 4 mg/dl (7-17); Calcium 8.4 mg/dl (8.4-10.2); Carbon Dioxide 28 mmol/L (22-30); Chloride 99 mmol/L (98-107); Estimated Creatinine Clearance 76 ml/min; Glucose 84 mg/dl (70-99); Potassium 3.4 mmol/L (3.5-5.1); Sodium 135 mmol/L (135-145); eGFR > 60.00
[2024-04-20 09:17] LABS: Magnesium 1.9 mg/dl (1.6-2.3)
[2024-04-20 09:34] VITALS: BP 158/93
[2024-04-20] MEDS: KCL 270 MEQ IV (09:54)
[2024-04-20] MEDS: TORADOL 15 MG IV ×2 (10:22→21:24)
--- NOTE | 2024-04-20 12:21 | W.PN.GI.CBS2 ---
Today's Communication / Plan
-
Start TF today at 10ml/hr via pump
RN updated with above
Bladder scan if no void by 4pm today (huston removed at 10am)
Assessment / Plan
-
Freda is a 53yo presents with ALS with peg tube placement 04/13 at [place] with increased diffuse abdominal pain. On admission CT completed with large amount of free air related to peg placement, tube in position, dilated stomach and proximal duodenum
with change in caliber at midline suggest SMA syndrome, moderate free, distended and fluid filled SB loops c/w enteritis, moderate stool in colon. Tube check confirms GT in position. Moderate pneumoperitoneum severe air distention of duodenum, SB
distention and mild to moderate colonic distention.
Impression
-diffuse abdominal pain
post PEG placement at [facility] 04/13
-lower pelvic pain
-urinary retention
-increase stool burden on initial CT
-dilated stomach and proximal duodenum with suggest SMA syndrome/enteritis on CT
-mild leukocytosis
-hypokalemia
Plan:
- Tolerated PEG tube clamping
- Repeated CT with less distension
- Tolerating dysphagia 6 diet
- Start TF today at low dose via pum
- C/w miralax
- Stop reglan due to dizziness
[facility] reviewed 04/15 with [facility] at [place] [phone] tube placed with weight loss, was to continue pleasure foods and slowly start Isosource 1.5 via [employer] with goal 4 cartons per day-- tube feeds already set up at
[facility]
plan per family was initial tube feed 30ml day 1 then 60 ml day 2 and advance as tolerated
Will follow with you
Subjective
Subjective
Date of Service: April 20, 2024
She ambulated today with assist. Feels dizzy and son says less talkative since reglan IV was started. She has tolerated CLD and clamping of PEG tube
Objective
Data Reviewed
Laboratory Data:
Laboratory Results
04/20/24 06:54
04/20/24 06:54
Laboratory Results
Phosphorus 2.1 mg/dl (2.5-4.5) L 04/17/24 07:16
Magnesium 1.9 mg/dl (1.6-2.3) 04/20/24 06:54
Total Bilirubin 1.0 mg/dl (0.2-1.3) 04/15/24 02:27
AST 19 U/L (14-36) 04/15/24 02:27
ALT < 10 U/L (0-35) 04/15/24 02:27
Alkaline Phosphatase 58 U/L (38-126) 04/15/24 02:27
Lipase 53 U/L (23-300) 04/15/24 02:27
Vital Signs and I&O:
Vital Signs
Temp Pulse Resp BP Pulse Ox
98.1 F 92 18 158/93 95
04/20/24 09:34 04/20/24 09:34 04/20/24 09:34 04/20/24 09:34 04/20/24 09:34
I&O
04/19/24 04/20/24 04/21/24
06:59 06:59 06:59
Intake Total 30 / 30
Output Total 2525 / 2525 1750 / 1750
Balance -2495 / -2495 -1750 / -1750
Physical Exam
Physical Exam
GEN: No acute distress, slowed speech
HEENT: anicteric, extraocular movements intact, clear oropharynx without exudates
GI: soft, non-distended, not tender to palpation, normal active bowel sounds, no hepatosplenomegaly, PEG in LUQ with dressing c/d/i
EXT: warm, well perfused, trace edema bilaterally
NEURO: AAOx3, non-focal
[2024-04-20 15:45] VITALS: BP 149/93
--- NOTE | 2024-04-20 17:12 | PTCARENOTE ---
Jevity 1.5 infusing through PEG at 10mL/hr - started at 1630. Pt tolerating so far. Pt voided 200mL since huston removed at 1000.
[2024-04-20] MEDS: LOVENOX 40 MG SC (17:14)
[2024-04-20 23:40] VITALS: BP 147/95
[2024-04-21 07:40] VITALS: BP 150/86
--- NOTE | 2024-04-21 08:07 | W.PN.GI.CBS2 ---
Today's Communication / Plan
-
tolerating tube feed low dose and oral diet
- Tolerated PEG tube clamping
- C/w miralax daily
stable from GI standpoint for discharge and continued slow tube feed advancement at home since tolerating oral diet. It make take some time to get to goal feeds with ALS
sent message to Kelly Chang MD to review
will sign off call with questions
reviewed 04/15 with [facility] clinic at [place] [phone] tube placed with weight loss, was to continue pleasure foods and slowly start Isosource 1.5 via [employer] with goal 4 cartons per day-- tube feeds already set up at [place]
plan per family was initial tube feed 30ml day 1 then 60 ml day 2 and advance as tolerated
Assessment / Plan
-
Freda is a 53yo presents with ALS with peg tube placement 04/13 at [place] with increased diffuse abdominal pain. On admission CT completed with large amount of free air related to peg placement, tube in position, dilated stomach and proximal duodenum
with change in caliber at midline suggest SMA syndrome, moderate free, distended and fluid filled SB loops c/w enteritis, moderate stool in colon. Tube check confirms GT in position. Moderate pneumoperitoneum severe air distention of duodenum, SB
distention and mild to moderate colonic distention. Pt also noted with urinary retention
04/17 CT A/p
There is a gastrostomy tube in the stomach, unchanged from prior study. The stomach and duodenum are less distended on today's study.
There is free fluid surrounding the spleen which was not seen previously although there was free fluid in the pelvis previously which persists on today's study.
Impression
-diffuse abdominal pain
post PEG placement at [place] 04/13
-lower pelvic pain
-urinary retention s/p straight cath with increased retention
-increase stool burden on initial CT
-dilated stomach and proximal duodenum with suggest SMA syndrome/enteritis on CT
-mild leukocytosis
-hypokalemia
Plan:
tolerating tube feed low dose and oral diet
- Tolerated PEG tube clamping
- C/w miralax daily
stable from GI standpoint for discharge and continued slow tube feed advancement at home since tolerating oral diet. It make take some time to get to goal feeds with ALS
sent message to Kelly Chang MD to review
will sign off call with questions
reviewed 04/[address] [facility] clinic at [place] [phone] tube placed with weight loss, was to continue pleasure foods and slowly start Isosource 1.5 via [employer] with goal 4 cartons per day-- tube feeds already set up at [place]
plan per family was initial tube feed 30ml day 1 then 60 ml day 2 and advance as tolerated
Subjective
Subjective
Date of Service: April 21, 2024
brown liquid stools on IDDS 6 diet and tube feeds at 10ml/hr -- pt feeling much better
Objective
Data Reviewed
Laboratory Data:
Laboratory Results
Phosphorus 2.1 mg/dl (2.5-4.5) L 04/17/24 07:16
Magnesium 1.9 mg/dl (1.6-2.3) 04/20/24 06:54
Total Bilirubin 1.0 mg/dl (0.2-1.3) 04/15/24 02:27
AST 19 U/L (14-36) 04/15/24 02:27
ALT < 10 U/L (0-35) 04/15/24 02:27
Alkaline Phosphatase 58 U/L (38-126) 04/15/24 02:27
Lipase 53 U/L (23-300) 04/15/24 02:27
Vital Signs and I&O:
Vital Signs
Temp Pulse Resp BP Pulse Ox
98.1 F 92 16 147/95 97
04/20/24 23:40 04/20/24 23:40 04/20/24 23:40 04/20/24 23:40 04/20/24 23:40
I&O
04/20/24 04/21/24 04/22/24
06:59 06:59 06:59
Intake Total 360 / 360
Output Total 1750 / 1750 1150 / 1150
Balance -1750 / -1750 -790 / -790
Physical Exam
Physical Exam
HEENT: Anicteric
Cardiology: Normal Sinus Rhythm
Pulmonary: Clear
GI: Soft, Distended (mild but improved ) and Non Tender
Extremities: No Edema
Neuro: Other (weakness with ALS)
[2024-04-21 08:18] LABS: Hematocrit 32.6 % (37.0-47.0); Hemoglobin 11.2 g/dL (12.0-16.0); Mean Corp Hgb Conc. 34.4 g/dL (33.0-37.0); Mean Corpuscular Hgb 29.7 pg (27.0-31.0); Mean Corpuscular Volume 86.5 fL (81.0-99.0); Platelet Count 376 10^3/uL (130-400); Red Blood Cell Count 3.77 10^6/uL (4.20-5.40); Red Cell Dist. Width 12.4 % (11.5-14.5); White Blood Cell Count 6.2 10^3/uL (4.8-10.8)
[2024-04-21 08:49] LABS: Blood Urea Nitrogen 4 mg/dl (7-17); Carbon Dioxide 26 mmol/L (22-30); Chloride 100 mmol/L (98-107); Estimated Creatinine Clearance 76 ml/min; Glucose 112 mg/dl (70-99); Magnesium 2.1 mg/dl (1.6-2.3); Potassium 3.9 mmol/L (3.5-5.1); Sodium 136 mmol/L (135-145); eGFR > 60.00
--- NOTE | 2024-04-21 08:51 | W.PN.HOSP.TC ---
Addendum entered and electronically signed by Kelly Chang MD 04/21/24 13:30:
total DC time 35 min
Original Note:
Today's Communication/Plan
-
DC home with HH
Assessment / Plan
Assessment / Plan
A/P:
# Lower Abdominal discomfort with urinary symptom, due to Acute urinary retention
Needed straight catheter couple times, Gann placed.
removed Gann 04/20 for TOV, and pt passed voiding trial
Repeat urinalysis x2 no evidence of UTI
Pt received Zosyn x 4 days, then Rocephin x1 day, stop further antibiotic
# Abdominal Pain since Recent PEG Placement 04/13/2024
# concern for superior mesenteric artery syndrome versus enteritis versus constipation versus ischemic bowel syndrome vs Stercoral colitis:
repeat CT AP 04/17: There is a gastrostomy tube in the stomach, unchanged from prior study. The stomach and duodenum are less distended. There is free fluid surrounding the spleen which was not seen previously although there was free fluid in the
pelvis previously which persists on repeat study. There is intraperitoneal free air, noted previously
Advanced diet to IDDSI 6 level diet
PEG tube being clamped, start when cleared by GI
Reglan was started as prokinetic, now discontinued
Continue bowel regimen with MiraLAX (on hold) and Dulcolax
GI on board
Surgery does not recommend surgical intervention at the moment.
transfer was discussed with Dr. Sky Rivera outpatient surgery, no indication for immediate transfer at this moment
# ALS
Follows up with outpatient neurologist at [place].
Continue neurological checks
# Clinical deconditioning/severe protein caloric malnutrition, BMI 15
She is able to tolerate oral intake but PEG was placed to help with nutrition and in anticipation of progression of her underlying neurological disorder.
Cont soft and bite size diet
# Leukocytosis, reactive and resolved
blood culture no growth
Repeat urinalysis x2 no evidence of UTI
Pt received Zosyn x 4 days, then Rocephin x1 day, stop further antibiotic
# Hypokalemia
Repleted
DVT prophylaxis: Lovenox SQ
Full code
DW GI team
BERNICE RN
Anticipated Discharge: Today
Subjective/Interval History
-
Date of Service: April 21, 2024
Objective Data
-
Labs:
Laboratory Results
04/21/24
07:43
WBC 6.2
Hgb 11.2 L
Hct 32.6 L
Plt Count 376
Sodium 136
Potassium 3.9
Chloride 100
Carbon Dioxide 26
BUN 4 L
Creatinine 0.3 L
Glucose 112 H
Calcium 9.0
Vital Signs:
Vital Signs
Temp Pulse Resp BP Pulse Ox
36.5 C 86 18 150/86 95
04/21/24 07:40 04/21/24 07:40 04/21/24 07:40 04/21/24 07:40 04/21/24 07:40
I&O
04/20/24 04/21/24 04/22/24
06:59 06:59 06:59
Intake Total 360 / 360
Output Total 1750 / 1750 1150 / 1150
Balance -1750 / -1750 -790 / -790
Review of Systems
-
All other systems: Reviewed and negative
Physical Exam
-
General: Well Developed, No Apparent Distress, Comfortable, Conversant, Appears Chronically Ill and Cachectic; Negative Respiratory Distress
HEENT: Normocephalic, Atraumatic, Nose Appears Normal and Ears Appear Normal; Negative Oxygen
Respiratory: Clear to Auscultation and Non Labored Respirations; Negative Accessory Resp Muscle Use
Cardiac: Regular Rhythm and S1/S2
GI: Soft, Nontender, Nondistended, Normal Bowel Sounds and Peg Tube
Skin: Warm and Dry
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
Psych: Calm and Intact Judgement/Insight (somewhat)
Data Reviewed
-
Labs: Labs Reviewed by me
--- NOTE | 2024-04-21 10:30 | CM ---
Addendum entered by Hannah Jimenez 04/21/24 11:11:
CM received return call from [facility], confirmed they do not need any clinical information or script sent over as patient is returning to previous tube feeds. CM updated [facility] on patient discharge. CM met with patient and son bedside, reports no
needs to CM at this time. Son to provide transportation home. CM will continue to follow for discharge planing needs.
Plan; home with [facility], tube feeds previously set up/delivered through [facility].
Original Note:
CM spoke with dietary at hospital, confirmed patient can return to home tube feeds, was only recommending Osmolite as [facility] does not have [employer]. CM left for [facility] [phone] ext [phone] to relay patient can return on home tube
feed regime, asked for return call. CM will continue to follow for discharge planning needs.
Plan; home with [facility].
[2024-04-21 10:51] VITALS: BP 138/93
--- NOTE | 2024-04-21 11:59 | VNURNOTE ---
[facility] resumption of care completed in [facility] after review of chart and discussion with patient. Patient confirmed having [facility] contact number.
--- NOTE | 2024-04-21 13:17 | W.DCSUMMARY ---
Discharge Summary
Discharge Data
Date of Admission: 04/16/24
Date of Discharge: 04/21/24
-
Pending Results: No
Hospital Course
Principal Diagnosis:
Abdominal pain at the site of recent PEG tube placement
Lower Abdominal discomfort due to acute urinary retention (resolved)
Chronic Diagnoses:�
Amyotrophic lateral sclerosis
Clinical deconditioning/severe protein caloric malnutrition, BMI 15
Chronic overactive bladder
Recent PEG placement on 04/13/24
Consultations:�
Gastroenterology
General surgery
Procedures:�
None
Clinical course:�
This is a 53-year-old female with past medical history as stated above, who presented to the hospital due to constant abdominal pain at the site of recent PEG tube placement.
The PEG tube was placed by Dr. Sky Rivera, bariatric surgeon/GI surgeon, at [facility].
Problem 1:
Abdominal Pain since recent PEG placement 04/13/2024.
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 There is intraperitoneal free air which could be from the recent PEG placement.
The patient received IV Toradol for pain control, and she was also given aggressive bowel regimen with MiraLAX and Dulcolax to help with her constipation.
She was started with Reglan as prokinetic which was not continued after discharge.
She tolerated a soft and bite-size diet which she can continue going forward.
She was started with tube feed, and can continue low rate at 10 cc/h until further directed by her GI doctor outpatient.
Problem 2:
Lower Abdominal discomfort due to acute urinary retention.
Gann was placed which was discontinued following successful voiding trial.
The patient has had 2 UA, both of which showed no evidence of UTI.
She did receive Zosyn for 4 days then Rocephin for 1 days, no further antibiotic was continued after that.
As for the rest of her medical problems, they were stable during her hospital stay.
Discharge Plan
-
Patient Disposition: Home with Home Care
Discharge Diagnosis/Procedures: Lower Abdominal discomfort with urinary symptom due to Acute urinary retention (resolved); Abdominal Pain since Recent PEG Placement 04/13/2024 (resolved)
Condition: Fair
Diet: As tolerated and Other diet
Additional Diets: soft and bite size diet, with slow tube feed with Jevity 1.5 and 10 cc/hr
Activity: As tolerated
Referrals:
PRIVATE,PHYSICIAN [Family Provider] - in less than 1 week
Additional Discharge Medication Instructions: avoid Xanax if able
Prescriptions:
Continued
Atropine 1% 1 % liquid
2 - 4 drp PO Q6HPRN PRN (Reason: sercetions)
metaxalone 400 mg Tablet
400 mg PO TID
sertraline 100 mg Tablet
100 mg PO DAILY
alprazolam [Xanax] 0.25 mg Tablet
0.25 mg PO BIDPRN PRN (Reason: anxiety)
Patient Comments:
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
norethindrone (contraceptive) 0.35 mg tablet
0.35 mg PO DAILY
celecoxib 100 mg Capsule
100 mg PO BID
lactose-reduced food with fibr Liquid
1 ea PO QID
carisoprodol [Soma] 250 mg Tablet
250 mg PO BIDPRN PRN (Reason: moderate pains)
Patient Comments:
[facility] poultry picker on 06/10/2021 #60
Discharge Orders:
Discharge Patient (As Directed); Ordered 04/21/24
Ordered By: Kelly Chang
Discharge Date and Time
Discharge Date/Time: 04/21/24 11:15
Print Language: TAJIK
== END 2024-04-21 11:15 | disposition home health service (06) | DRG 919 ==
LOC: 4 EAST ACU 08:23
PROVIDERS: Hospitalist; Nurse Practitioner Adult Health; ADMITTING PHYSICIAN Internal Medicine; CONSULT PHYSICIAN Internal Medicine Gastroenterology; CONSULT PHYSICIAN Surgery; EMERGENCY PHYSICIAN Student in an Organized Health Care Education/Training Program
DX: T85.848A Pain due to other internal prosthetic devices, implants and grafts, initial encounter (principal); E43 Unspecified severe protein-calorie malnutrition; K65.8 Other peritonitis; G12.21 Amyotrophic lateral sclerosis; Z68.1 Body mass index [BMI] 19.9 or less, adult; K55.1 Chronic vascular disorders of intestine; Y73.2 Prosthetic and other implants, materials and accessory gastroenterology and urology devices associated with adverse incidents; Y92.9 Unspecified place or not applicable; Y83.8 Other surgical procedures as the cause of abnormal reaction of the patient, or of later complication, without mention of misadventure at the time of the procedure; G89.18 Other acute postprocedural pain; R06.02 Shortness of breath; N32.81 Overactive bladder; R10.9 Unspecified abdominal pain; E87.6 Hypokalemia; J30.81 Allergic rhinitis due to animal (cat) (dog) hair and dander; G89.29 Other chronic pain; R33.9 Retention of urine, unspecified; N31.9 Neuromuscular dysfunction of bladder, unspecified; F12.90 Cannabis use, unspecified, uncomplicated; M54.9 Dorsalgia, unspecified; K59.00 Constipation, unspecified; D72.829 Elevated white blood cell count, unspecified; Z93.1 Gastrostomy status; Z87.891 Personal history of nicotine dependence
CPT/HCPCS: 49465; 74018; 74177; 80048; 80053; 81003; 81015; 82962; 83605; 83690; 83735; 84100; 85025; 85027; 87040; 92610; 93005; 96361; 96374; 96375; 97161; 97166; 99285; Q9967

== ENCOUNTER → 2025-09-09 13:42 | Outpatient (REF) | payer MEDICARE, OTHER, SELFPAY | LOC: RAD 13:42 | PROVIDERS: ATTENDING PHYSICIAN Nurse Practitioner Adult Health | DX: K94.23 Gastrostomy malfunction (principal) | CPT/HCPCS: 49465 ==